=== PATIENT | female | born 1955 | race Caucasian/White ===

== ENCOUNTER 2017-12-10 19:47 | Inpatient (IN) | payer MEDICAID ==
[2017-12-10] MEDS ORDERED: Sodium Chloride 0.9% 1,000 ML IV STA (22:26)
--- NOTE | 2017-12-10 22:32 | ED PDOC ---
HPI: Female Pain Time Seen by Provider: 12/10/17 22:07 Chief Complaint (Nursing): Female Genitourinary Chief Complaint (Provider): Dysuria History Per: Patient, Family Additional Complaint(s): Pt sent by Dr. Carol Mi for UTI. Son reports dysuria, hematuria, fever and L flank pain X 3 days. Pt has h/o multiple kidney stones, s/p lithotripsy X 2. Pt had "cleaning" surgery of OS eye this morning. Past Medical History Reviewed: Nursing Documentation, Vital Signs Vital Signs: Last Vital Signs Temp 98.0 F 12/10/17 20:18 Pulse 78 12/10/17 20:18 Resp 16 12/10/17 20:18 BP 116/65 12/10/17 20:18 Pulse Ox 98 12/10/17 20:18 - Medical History PMH: Diabetes, HTN - Surgical History Other surgeries: Lithotripsy - Family History Family History: States: Unknown Family Hx - Living Arrangements Living Arrangements: With Family - Social History Current smoker - smoking cessation education provided: No Alcohol: None - Home Medications Home Medications: Ambulatory Orders Medication Instructions Recorded Acetaminophen/Codeine 1 tab PO Q6H PRN 12/11/17 [Tylenol/Codeine 300 MG/30 MG] Ammonium Lactate 12% [Lac-Hydrin 1 applic TOP BID 12/11/17 12% Cream (140 g)] Brinzolamide/Brimonidine Tart 8 ml OP BID 12/11/17 [Simbrinza 0.2%-1% 8 ml] Cranberry Fruit Extract [Cranberry] 1,000 mg PO BID 12/11/17 Gabapentin [Neurontin] 300 mg PO TID 12/11/17 Hydrocortisone 2.5% (Rectal) 30 applic DE BID 12/11/17 [Anusol-HC] Lisinopril [Zestril] 10 mg PO DAILY 12/11/17 Mag Hydrox/Aluminum Hyd/Simeth 30 ml PO DAILY PRN 12/11/17 [Mag-Al Plus Xs 30 ml] Metformin HCl [Glucophage] 1,000 mg PO DAILY 12/11/17 Pantoprazole [Protonix] 40 mg PO DAILY 12/11/17 Phenazopyridine [Pyridium] 100 mg PO TID 12/11/17 Polyethylene Glycol 3350 [Miralax] 17 g PO DAILY 12/11/17 Pravastatin Sodium [Pravachol] 40 mg PO DAILY 12/11/17 Sennosides [Senna Lax] 1 tab PO DAILY 12/11/17 Simethicone [Bicarsim] 80 mg PO TID 12/11/17 Travoprost [Travatan Z 2.5 ml] 5 ml OP HS 12/11/17 Warfarin [Coumadin] 5 mg PO HS 12/11/17 [id number] CD [Cardizem CD] 360 mg PO DAILY 12/11/17 - Allergies Allergies/Adverse Reactions: Allergies Allergy/AdvReac Type Severity Reaction Status Date / Time No Known Allergies Allergy Verified 12/10/17 20:15 Review of Systems Constitutional: Positive for: Fever. Negative for: Chills, Weakness, Malaise Cardiovascular: Negative for: Chest Pain, Palpitations Respiratory: Negative for: Cough, Shortness of Breath Gastrointestinal: Negative for: Nausea, Vomiting, Abdominal Pain Genitourinary Female: Positive for: Dysuria, Hematuria Musculoskeletal: Positive for: Back Pain Skin: Negative for: Rash, Lesions Neurological: Negative for: Headache Physical Exam - Reviewed Nursing Documentation Reviewed: Yes Vital Signs Reviewed: Yes - Physical Exam Appears: Positive for: Uncomfortable Head Exam: Positive for: ATRAUMATIC, NORMAL INSPECTION Skin: Positive for: Normal Color, Warm, Dry Eye Exam: Positive for: Conjunctival injection (OS) Cardiovascular/Chest: Positive for: Regular Rate, Rhythm Respiratory: Positive for: Normal Breath Sounds Gastrointestinal/Abdominal: Positive for: Normal Exam, Bowel Sounds, Soft. Negative for: Tenderness Back: Positive for: L CVA Tenderness, R CVA Tenderness Extremity: Positive for: Normal ROM Neurologic/Psych: Positive for: Alert, Oriented - Laboratory Results Result Diagrams: 12/14/17 05:35 12/14/17 05:35 - ECG O2 Sat by Pulse Oximetry: 98 Medical Decision Making Medical Decision Makin yo female with fever, dysuria, hematuria and flank pain. - labs - EKG - CT abd/pelvis - IVF - Morphine Time: 2326 CT ABD/PELVIS RESULTS FINDINGS: Lower thorax: Small hiatal hernia. Atelectasis or fibrosis in the bases. ABDOMEN: Liver: Normal. No mass. Gallbladder and bile ducts: Cholelithiasis. Pancreas: Normal. No ductal dilation. Spleen: Normal. No splenomegaly. Adrenals: Left adrenal thickening. Kidneys and ureters: Calyceal stones are noted on the left with stranding around the left renal pelvis. Correlate for intermittent obstruction. The collecting system proximal to the stone material superiorly appears to be somewhat dilated. Correlate for signs of infection. Small stone or renal vascular calcification on the right. No right-sided hydronephrosis Stomach and bowel: Moderate fecal retention. Diverticulosis with no diverticulitis. Appendix: No evidence of appendicitis. PELVIS: Bladder: Unremarkable as visualized. Reproductive: Unremarkable as visualized. YAKELIN JOSHI | Preliminary Radiology Report RETAIL INTERIOR DESIGNER (QA) DISCREPANCY? If there is a discrepancy between the preliminary and final interpretation, please notify Reading Room via [email or web address]. If you do not have access to our QA portal, call our QA team at [phone] CONFIDENTIALITY STATEMENT This report is intended only for the use of the referring physician, and only in accordance with law, If you received this in error, call [phone] Page 2 of 2 ABDOMEN and PELVIS: Intraperitoneal space: Normal. No free air. No significant fluid collection. Bones/joints: Degenerative changes in the spine. Soft tissues: Probable injection granulomas in the gluteal regions. Vasculature: Normal. No abdominal aortic aneurysm. Lymph nodes: Normal. No enlarged lymph nodes. IMPRESSION: 1. Calyceal stones are noted on the left with stranding around the left renal pelvis. Correlate for intermittent obstruction. The collecting system proximal to the stone material superiorly appears to be somewhat dilated. Correlate for signs of infection. 2. Cholelithiasis. Thank you for allowing us to participate in the care of your patient. Dictated and Authenticated by: Rashad Quesada MD 12/10/2017 11:27 PM Eastern Time ([place] & [place]) Time: 0000 -- Patient endorsed to Dr. Cabrera, pending urine and disposition. Scribe Attestation: Documented by Jayla Zavala acting as a scribe for Dr. Priscila Vicente MD. Provider Scribe Attestation: All medical record entries made by the Scribe were at my direction and personally dictated by me. I have reviewed the chart and agree that the record accurately reflects my personal performance of the history, physical exam, medical decision making, and the department course for this patient. I have also personally directed, reviewed, and agree with the discharge instructions and disposition. Disposition - Clinical Impression Clinical Impression: Urinary tract infection - Disposition Disposition: Transfer of Care Disposition Time: 19:00 Condition: STABLE Patient Signed Over To: Jazmin Cabrera
[2017-12-10 23:36] LABS: BASO # 0.1 K/uL (0.0-0.2); BASO % 0.9 % (0.0-2.0); EOS # 0.1 K/uL (0.0-0.7); EOS % 1.2 % (0.0-4.0); HEMOGLOBIN 13.2 g/dL (12.0-16.0); LYMPH # 2.7 K/uL (1.0-4.3); LYMPH % 41.5 % (20.0-40.0); MEAN CELL VOLUME 87.6 fl (81.0-99.0); MEAN CORPUSCULAR HEMOGLOBIN 29.3 pg (27.0-31.0); MEAN CORPUSCULAR HGB CONC 33.4 g/dL (33.0-37.0); MONO # 0.9 K/uL (0.0-0.8); MONO % 13.9 % (0.0-10.0); NEUT # 2.7 K/uL (1.8-7.0); NEUT % 42.5 % (50.0-75.0); NRBC % 0.1 % (0.0-0.0); RBC 4.49 Mil/uL (3.80-5.20); RED CELL DISTRIBUTION WIDTH 13.6 % (11.5-14.5); WHITE BLOOD COUNT 6.4 K/uL (4.8-10.8)
[2017-12-10 23:49] LABS: ALB/GLOB RATIO 1.2 (1.0-2.1); ALBUMIN 3.8 g/dL (3.5-5.0); ALT/SGPT 28 U/L (9-52); AST/SGOT 23 U/L (14-36); BLOOD UREA NITROGEN 14 mg/dl (7-17); CALCIUM 9.3 mg/dL (8.4-10.2); GFR AFRICAN-AMERICAN > 60; GFR NON-AFRICAN AMERICAN > 60
[2017-12-11 00:02] LABS: INR 3.2 (0.9-1.2); PARTIAL THROMBOPLASTIN TIME 44.6 Seconds (25.6-37.1); PROTHROMBIN TIME 35.9 Seconds (9.8-13.1)
--- NOTE | 2017-12-11 00:05 | ED PDOC ---
- Laboratory Results Result Diagrams: 12/11/17 12:51 12/11/17 12:51 - ECG O2 Sat by Pulse Oximetry: 98 (RA) Pulse Ox Interpretation: Normal Medical Decision Making Medical Decision Making: Time: 0000 -- Patient endorsed to me by Dr. Vicente, pending urine and disposition. UA consistent with UTI. Admit for pyelonephritis for IV abx. Scribe Attestation: Documented by Jayla Zavala acting as a scribe for Dr. Jazmin Cabrera MD. Provider Scribe Attestation: All medical record entries made by the Scribe were at my direction and personally dictated by me. I have reviewed the chart and agree that the record accurately reflects my personal performance of the history, physical exam, medical decision making, and the department course for this patient. I have also personally directed, reviewed, and agree with the discharge instructions and disposition. Disposition Discussed With DrAugie: Shiva Alvarez Counseled Patient/Family Regarding: Studies Performed, Diagnosis - Clinical Impression Clinical Impression: Urinary tract infection - POA Present On Arrival: None - Disposition Disposition: Admitted as In-Patient Disposition Time: 01:30 Condition: FAIR
[2017-12-11 00:52] LABS: SQUAMOUS EPITHIAL 14 /hpf (0-5); URINE BILIRUBIN NEGATIVE (NEGATIVE); URINE BLOOD LARGE (NEGATIVE); URINE CLARITY TURBID (Clear); URINE COLOR AMBER (YELLOW); URINE GLUCOSE (UA) NEG (Normal); URINE LEUKOCYTE ESTERASE LARGE Leu/uL (Negative); URINE PROTEIN >=500 mg/dL (NEGATIVE); URINE UROBILINOGEN 0.2-1.0 mg/dL (0.2-1.0)
[2017-12-11] MEDS ORDERED: cefTRIAXone (Rocephin) 1 gm Inj ONE (03:12)
--- NOTE | 2017-12-11 09:52 | CT ---
PROCEDURE: CT Abdomen and Pelvis without intravenous contrast HISTORY: L flank pain COMPARISON: None. TECHNIQUE: Contiguous images were obtained from the domes of the diaphragms to the upper thighs without the administration of intravenous contrast. Oral contrast was not administered. Radiation dose: Total exam DLP = 1164.4 mGy-cm. This CT exam was performed using one or more of the following dose reduction techniques: Automated exposure control, adjustment of the mA and/or kV according to patient size, and/or use of iterative reconstruction technique. FINDINGS: LOWER THORAX: Cardiomegaly. Coronary arterial and valvular calcifications. No focal consolidation or pleural effusion. LIVER: Unremarkable. No gross lesion or ductal dilatation. GALLBLADDER AND BILE DUCTS: Cholelithiasis without gallbladder wall thickening/ edema or pericholecystic fluid. PANCREAS: Unremarkable. No gross lesion or ductal dilatation. SPLEEN: Unremarkable. ADRENALS: Unremarkable. No mass. KIDNEYS AND URETERS: 1.6 x 0.9 cm left renal pelvis staghorn calculus extending into upper and lower pole calices causing moderate upper pole hydronephrosis. No solid mass. VASCULATURE: Calcific atherosclerosis. No aortic aneurysm. BOWEL: Colonic diverticulosis. No obstruction. No gross mural thickening. APPENDIX: Unremarkable. Normal appendix. PERITONEUM: Unremarkable. No free fluid. No free air. LYMPH NODES: Unremarkable. No enlarged lymph nodes. BLADDER: Unremarkable. REPRODUCTIVE: Unremarkable. BONES: Nonacute deformity of the symphysis pubis. Sacroiliac joint degenerative changes. OTHER FINDINGS: None. IMPRESSION: 1.6 x 0.9 cm left renal pelvis staghorn calculus extending into upper and lower pole calices causing moderate upper pole hydronephrosis. Additional findings as above.
[2017-12-11] MEDS ORDERED: SIMETH PO PRN (10:37)
[2017-12-11] MEDS ORDERED: MAG HYDROX PO PRN (10:37)
[2017-12-11] MEDS ORDERED: Acetaminophen-Codeine 300/30 mg Tab PO PRN (10:37)
[2017-12-11] MEDS ORDERED: ALUMINUM HYD PO PRN (10:37)
[2017-12-11] MEDS ORDERED: HYDROmorphone 0.5 mg/0.5 ml ISec IVP PRN (10:45)
[2017-12-11] MEDS ORDERED: Alum-Mag Hydrox-Simethicone Susp (30 mL) PO PRN (11:59)
[2017-12-11] MEDS: Simethicone 80 mg Chewtab PO SCH ×2 (12:34→18:45)
[2017-12-11 13:11] LABS: ALB/GLOB RATIO 1.1 (1.0-2.1); ALBUMIN 3.8 g/dL (3.5-5.0); ALT/SGPT 25 U/L (9-52); AST/SGOT 20 U/L (14-36); BLOOD UREA NITROGEN 13 mg/dl (7-17); CALCIUM 9.5 mg/dL (8.4-10.2); GFR AFRICAN-AMERICAN > 60; GFR NON-AFRICAN AMERICAN > 60
[2017-12-11 13:22] LABS: BASO % 0.3 % (0.0-2.0); EOS # 0.1 K/uL (0.0-0.7); EOS % 0.9 % (0.0-4.0); HEMOGLOBIN 13.5 g/dL (12.0-16.0); LYMPH # 3.6 K/uL (1.0-4.3); LYMPH % 44.5 % (20.0-40.0); MEAN CELL VOLUME 87.9 fl (81.0-99.0); MEAN CORPUSCULAR HEMOGLOBIN 29.8 pg (27.0-31.0); MEAN CORPUSCULAR HGB CONC 33.9 g/dL (33.0-37.0); MEAN PLATELET VOLUME 8.8 fl (7.2-11.7); MONO # 1.1 K/uL (0.0-0.8); MONO % 13.8 % (0.0-10.0); NEUT # 3.2 K/uL (1.8-7.0); NEUT % 40.5 % (50.0-75.0); NRBC % 0.2 % (0.0-0.0); RBC 4.53 Mil/uL (3.80-5.20); RED CELL DISTRIBUTION WIDTH 13.5 % (11.5-14.5)
[2017-12-11 13:23] LABS: B-TYPE NATRIURETIC PEPTIDE 304 pg/ml (0-900)
--- NOTE | 2017-12-11 13:41 | RAD ---
HISTORY: Chest pain COMPARISON: No prior. FINDINGS: LUNGS: No active pulmonary disease. PLEURA: No significant pleural effusion identified, no pneumothorax apparent. CARDIOVASCULAR: Atherosclerotic aortic calcifications. Cardiomediastinal silhouette enlarged. OSSEOUS STRUCTURES: Degenerative changes. VISUALIZED UPPER ABDOMEN: Normal. OTHER FINDINGS: None. IMPRESSION: No active disease.
--- NOTE | 2017-12-11 13:50 | PCM.RRT ---
<FarzanehMaria M - Last Filed: 12/11/17 14:26> EQUIPMENT MAINTENANCE TECHNICIAN Nurse Assessment - Situation Location: [address] [place] [address] Room Number: 657 2 EQUIPMENT MAINTENANCE TECHNICIAN Reason for Call: Chest Pain, Looks Sicker EQUIPMENT MAINTENANCE TECHNICIAN Called By: RN - IV IV Inserted during EQUIPMENT MAINTENANCE TECHNICIAN?: No - Respiratory Oxygen Delivery Method: Nasal Cannula Received Nebulizer Treatments: No Was the Patient Ventilated with Bag/Mask 100% O2?: No Secretions Suctioned?: No Was the Patient Intubated?: No Was the Patient Placed on a Ventilator?: No - Diagnostic Test Ordered EKG: Yes Chest X-Ray: No CT Scan: No - Stat Labs Ordered EQUIPMENT MAINTENANCE TECHNICIAN Stat Labs Ordered: BMP, TROPONIN CPR started during EQUIPMENT MAINTENANCE TECHNICIAN?: No - Vital Signs Vital Signs: Rapid Response Vital Sign Blood Pressure 158/83 Pulse Rate 85 Respiratory Rate 18 Oxygen Saturation 98 - Time EQUIPMENT MAINTENANCE TECHNICIAN Ended Time EQUIPMENT MAINTENANCE TECHNICIAN Ended: 13:10 - Vital Signs at end of EQUIPMENT MAINTENANCE TECHNICIAN Vital Signs at end of EQUIPMENT MAINTENANCE TECHNICIAN: Rapid Response End Vital Sign Blood Pressure 156/78 Pulse Rate 84 Respiratory Rate 22 O2 Sat by Pulse Oximetry 96 - Recommendations EQUIPMENT MAINTENANCE TECHNICIAN Level of Care Recommendations: Remain in current setting I.Reason for EQUIPMENT MAINTENANCE TECHNICIAN - A) Acute Change in Patient: Subjective: EQUIPMENT MAINTENANCE TECHNICIAN: Elba Wellington [id number] EQUIPMENT MAINTENANCE TECHNICIAN Time:12:46 pm EQUIPMENT MAINTENANCE TECHNICIAN Location: [address] [place] [address] Rm [id number] EQUIPMENT MAINTENANCE TECHNICIAN Arrival: 12:50pm EQUIPMENT MAINTENANCE TECHNICIAN Reason: Chest pain/pressure S: EQUIPMENT MAINTENANCE TECHNICIAN called by RN bc pt was complaining of chest pain/pressure after taking a dose of Dilaudid O: EQUIPMENT MAINTENANCE TECHNICIAN Vitals:12:50pm T: BP: 152/79 HR: 92 RR: O2 Sat:88% on NC General:Patient is Anxious and in distress, moaning, AAOx3 HEENT: NCAT, PERRLA, EOMI Cardiac: RRR, +S1S2, no murmurs rubs or gallops Resp: B/L breath sounds heard, CTA Abdo: No abdominal tenderness, + bowel sounds heard Extr: B/L LE chronic skin changes, + edema EQUIPMENT MAINTENANCE TECHNICIAN intervention: -Labs obtained- CBC, CMP, Troponins Q8h, Pro-BNP -Stat EKG completed and interpreted by Dr. Kim, patient has A fib on coumadin consistent with prior study on 12/11/17, no ischemic changes, no ST Elevations. -Portable CXR -0.25 Xanax (PT refused) -Transfer to Telemetry (PT refused) -Patient refused to sign transfer form -Dr. Leblanc Cardio consult STAT -All interventions refused A/P: 62 yo F admitted for pyleonephritis complaining of chest pain/pressure after receiving a dose of dilaudid EQUIPMENT MAINTENANCE TECHNICIAN Outcome: Follow up serial troponins, patient labs Events Patient refused all interventions and refused to sign document for transfer to telemetry EQUIPMENT MAINTENANCE TECHNICIAN vitals: BP 156/76 HR 84 O2 Sat 96 (1:05pm) EQUIPMENT MAINTENANCE TECHNICIAN end: 1:05pm EQUIPMENT MAINTENANCE TECHNICIAN Leader: Dr. Kim EQUIPMENT MAINTENANCE TECHNICIAN residents: Magdiel Altman MD PGY3 Pamela Rachel PGY2 Maria M Moy MD- PGY1 Ruth Wilson MD PGY1 <Sherri Kim - Last Filed: 12/11/17 16:40> EQUIPMENT MAINTENANCE TECHNICIAN Nurse Assessment - Vital Signs Vital Signs: Rapid Response Vital Sign Blood Pressure 158/83 Pulse Rate 85 Respiratory Rate 18 Oxygen Saturation 98 - Vital Signs at end of EQUIPMENT MAINTENANCE TECHNICIAN Vital Signs at end of EQUIPMENT MAINTENANCE TECHNICIAN: Rapid Response End Vital Sign Blood Pressure 156/78 Pulse Rate 84 Respiratory Rate 22 O2 Sat by Pulse Oximetry 96 Attending/Attestation - Attestation I have personally seen and examined this patient.: Yes I have fully participated in the care of the patient.: Yes I have reviewed all pertinent clinical information, including history, physical exam and plan: Yes Notes (Text): 12/11/17 16:37 Chest Pain prob referred pain from Pyelonephritis however need to r/o cardiac etiology - EKG : no change from previous , A Fib - refused transfer to Tele - Troponin x 3 - CXR - Pt on Coumadin for A Fib - refused to tke any med for now Dr Alvarez notified of event- rec Cardio consult with Dr Leblanc
[2017-12-11] MEDS ORDERED: BRIMONIDINE TART OP SCH (17:00)
[2017-12-11] MEDS ORDERED: BRINZOLAMIDE OP SCH (17:00)
[2017-12-11] MEDS: Hydrocortisone 2.5% (Rectal) CREAM PR SCH (18:45)
[2017-12-11] MEDS: Ammonium Lactate 12% Cream (140 g) TOP SCH (18:45)
--- NOTE | 2017-12-11 18:45 | CP.PCM.CON ---
History of Present Illness - History of Present Illness History of Present Illness: Nephrology Consultation Note: Assessment: Stable UTI with left staghorn calculi diabetes Mellitus ( years), hypertension (years) morbid obesity hyperlipidemia, a fib, left kidney stone s/p ESWL and stent placements Plan renal function normal. repeat urine studies for protein once UTI better Hypertension control with meds as ordered. Patient on lisinopril, continue with same. BP controlled continue with IVF and antibiotics need urology consult as well. d/w Dr Issa Dose meds/antibiotics for normal GFR. Glycemic control Further work up/management as per primary team Thanks for allowing me to participate in care of your patient. Please call if any Qs Dr Juan Yap Office: [phone] Chief Complaint; left flank pain HPI: Pt is a with hx of diabetes Mellitus ( years), hypertension (years) morbid obesity hyperlipidemia, a fib, left kidney stone s/p ESWL and stent placements presented with complaints of left flank pain and UTI. found to have left staghorn calculi and renal consult for further management Denies OTC/herbal meds or NSAIDs No recent iodinated contrast exposure. No obvious episodes of low BP. left flank pain better pt says she has been going through these for many years and this is not new for her and had happened many times ROS: use language line for sami interpretation Cardiovascular: No chest pain. Pulmonary: No shortness of breath Gastrointestinal: denies abdominal pain now and better No nausea. No vomiting. Genitourinary: c/o blood in urine. All other negative except as mentioned in HPI Physical Examination: General Appearance: Comfortable, in no acute respiratory distress, co-operative . obese Vitals reviewed and noted as below Head; Atraumatic, normocephalic ENT: no ulcers no thrush. Tongue is midline. Oropharynx: no rash or ulcers. EYES: Pupils are equal, round and reactive to light accommodation. Eye muscles and extraocular movement intact. Sclera is anicteric. Neck; supple no lymphadenopathy, no thyromegaly or bruit Lungs: Normal respiratory rate/effort. Breath sounds bilateral equal and clear Heart: Normal rate. s1s2 normal. No rub or gallop. Extremities: no edema. No varicose veins Neurological: Patient is alert, awake and oriented to person, place and time. No focal deficit. Strength bilateral appropriate and equal Skin: Warm and dry. Normal turgor. No rash. Palpitation: Normal elasticity for age Abdomen: Abdomen is soft. Bowel sounds +. There is no abdominal tenderness, no guarding/rigidity no organomegaly Psych: normal insight and normal affect/mood MSK: no joint tenderness or swelling. Digits and nails normal, no deformity : kidney or bladder not palpable Labs/imaging reviewed. Past medical history, past surgical history, family history, social history, allergy reviewed and noted as below Family hx: no hx of CKD. Rest non-contributory Past Patient History - Past Social History Smoking Status: Never Smoked - CARDIAC Hx Cardiac Disorders: Yes (CARD ARRHTHMIA, HTN) - HEENT Hx HEENT Problems: Yes (GLAUCOMA) - RENAL Other/Comment: kidney stone - ENDOCRINE/METABOLIC Hx Diabetes Mellitus Type 2: Yes - MUSCULOSKELETAL/RHEUMATOLOGICAL Hx Falls: No - GASTROINTESTINAL Other/Comment: gall stone - GENITOURINARY/GYNECOLOGICAL Hx Genitourinary Disorders: Yes (KIDNEY STONES, LITHOTRIPSY) - PSYCHIATRIC Hx Substance Use: No - SURGICAL HISTORY Other/Comment: kidney stone lithotripsy - ANESTHESIA Hx Anesthesia: Yes Hx Anesthesia Reactions: No Meds Allergies/Adverse Reactions: Allergies Allergy/AdvReac Type Severity Reaction Status Date / Time No Known Allergies Allergy Verified 12/10/17 20:15 - Medications Medications: Current Medications Acetaminophen/Codeine Phosphate (Tylenol/Codeine 300 Mg/30 Mg) 1 tab PO Q6 PRN PRN Reason: Pain, moderate (4-7) Al Hydrox/Mg Hydrox/Simethicone (Maalox Plus 30 Ml) 30 ml PO DAILY PRN PRN Reason: Heartburn Last Admin: 12/11/17 12:34 Dose: 30 ml Diltiazem HCl (Cardizem Cd) 360 mg PO DAILY LISANDRA Gabapentin (Neurontin) 300 mg PO TID LISANDRA Last Admin: 12/11/17 13:26 Dose: Not Given Home Med (Brinzolamide/Brimonidine Tart [Simbrinza 1%-0.2% Eye Drops]) 8 ml OP BID LISANDRA Hydrocortisone (Anusol-Hc) 30 applic [place] BID LISANDRA Hydromorphone HCl (Dilaudid) 1 mg IVP Q4H PRN PRN Reason: Pain, severe (8-10) Last Admin: 12/11/17 11:34 Dose: 1 mg Ceftriaxone Sodium 1 gm/ (Sodium Chloride) 100 mls @ 100 mls/hr IVPB DAILY [facility] PRN Reason: Protocol Lactic Acid (Lac-Hydrin 12% Cream (140 G)) 1 ea TOP BID LISANDRA Latanoprost (Xalatan Opht) 1 drop OS HS LISANDRA Lisinopril (Zestril) 10 mg PO DAILY [facility] Metformin HCl (Glucophage) 1,000 mg PO DAILY LISANDRA Pantoprazole Sodium (Protonix Ec Tab) 40 mg PO DAILY LISANDRA Phenazopyridine HCl (Pyridium) 100 mg PO TID [facility] Last Admin: 12/11/17 13:26 Dose: Not Given Polyethylene Glycol (Miralax) 17 gm PO DAILY LISANDRA Pravastatin Sodium (Pravachol) 40 mg PO DAILY LISANDRA Sennosides (Senokot Tab) 8.6 mg PO DAILY [facility] Simethicone (Mylicon Chew Tab) 80 mg PO TID [facility] Last Admin: 12/11/17 12:34 Dose: 80 mg Warfarin Sodium (Coumadin) 4 mg PO ONCE ONE PRN Reason: Protocol Stop: 12/12/17 17:01 Results - Vital Signs Recent Vital Signs: Last Vital Signs Temp 97.3 F L 12/11/17 17:00 Pulse 87 12/11/17 17:00 Resp 20 12/11/17 17:00 BP 132/70 12/11/17 17:00 Pulse Ox 100 12/11/17 17:00 - Labs Result Diagrams: 12/11/17 12:51 12/11/17 12:51 Labs: Laboratory Results - last 24 hr 12/10/17 12/10/17 12/10/17 23:20 23:31 23:31 WBC 6.4 RBC 4.49 Hgb 13.2 Hct 39.4 MCV 87.6 MCH 29.3 MCHC 33.4 RDW 13.6 Plt Count 241 MPV 9.0 Neut % (Auto) 42.5 L Lymph % (Auto) 41.5 H Vance % (Auto) 13.9 H Eos % (Auto) 1.2 Baso % (Auto) 0.9 Neut # (Auto) 2.7 Lymph # (Auto) 2.7 Vance # (Auto) 0.9 H Eos # (Auto) 0.1 Baso # (Auto) 0.1 PT INR APTT Sodium 140 Potassium 4.2 Chloride 106 Carbon Dioxide 22 Anion Gap 16 BUN 14 Creatinine 0.7 Est GFR ( Amer) > 60 Est GFR (Non-Af Amer) > 60 POC Glucose (mg/dL) 149 H Random Glucose 148 H Calcium 9.3 Total Bilirubin 0.6 AST 23 ALT 28 Alkaline Phosphatase 71 Troponin I NT-Pro-B Natriuret Pep Total Protein 6.9 Albumin 3.8 Globulin 3.1 Albumin/Globulin Ratio 1.2 Urine Color Urine Clarity Urine pH Ur Specific [place] Urine Protein Urine Glucose (UA) Urine Ketones Urine Blood Urine Nitrate Urine Bilirubin Urine Urobilinogen Ur Leukocyte Esterase Urine RBC (Auto) Urine Microscopic WBC Ur Squamous Epith Cells 12/10/17 12/11/17 12/11/17 23:31 00:29 11:13 WBC RBC Hgb Hct MCV MCH MCHC RDW Plt Count MPV Neut % (Auto) Lymph % (Auto) Vance % (Auto) Eos % (Auto) Baso % (Auto) Neut # (Auto) Lymph # (Auto) Vance # (Auto) Eos # (Auto) Baso # (Auto) PT 35.9 H INR 3.2 H APTT 44.6 H Sodium Potassium Chloride Carbon Dioxide Anion Gap BUN Creatinine Est GFR ( Amer) Est GFR (Non-Af Amer) POC Glucose (mg/dL) 124 H Random Glucose Calcium Total Bilirubin AST ALT Alkaline Phosphatase Troponin I NT-Pro-B Natriuret Pep Total Protein Albumin Globulin Albumin/Globulin Ratio Urine Color Hyacinth Urine Clarity Turbid Urine pH 6.0 Ur Specific [place] 1.022 Urine Protein >=500 Urine Glucose (UA) Neg Urine Ketones Negative Urine Blood Large Urine Nitrate Negative Urine Bilirubin Negative Urine Urobilinogen 0.2-1.0 Ur Leukocyte Esterase Large Urine RBC (Auto) 2265 H Urine Microscopic WBC 2218 H Ur Squamous Epith Cells 14 H 12/11/17 12/11/17 12/11/17 12:48 12:51 12:51 WBC 8.0 RBC 4.53 Hgb 13.5 Hct 39.9 MCV 87.9 MCH 29.8 MCHC 33.9 RDW 13.5 Plt Count 240 MPV 8.8 Neut % (Auto) 40.5 L Lymph % (Auto) 44.5 H Vance % (Auto) 13.8 H Eos % (Auto) 0.9 Baso % (Auto) 0.3 Neut # (Auto) 3.2 Lymph # (Auto) 3.6 Vance # (Auto) 1.1 H Eos # (Auto) 0.1 Baso # (Auto) 0.0 PT INR APTT Sodium 141 Potassium 4.2 Chloride 106 Carbon Dioxide 24 Anion Gap 15 BUN 13 Creatinine 0.6 L Est GFR ( Amer) > 60 Est GFR (Non-Af Amer) > 60 POC Glucose (mg/dL) 140 H Random Glucose 158 H Calcium 9.5 Total Bilirubin 0.7 AST 20 ALT 25 Alkaline Phosphatase 81 Troponin I < 0.0120 NT-Pro-B Natriuret Pep 304 Total Protein 7.2 Albumin 3.8 Globulin 3.4 Albumin/Globulin Ratio 1.1 Urine Color Urine Clarity Urine pH Ur Specific [place] Urine Protein Urine Glucose (UA) Urine Ketones Urine Blood Urine Nitrate Urine Bilirubin Urine Urobilinogen Ur Leukocyte Esterase Urine RBC (Auto) Urine Microscopic WBC Ur Squamous Epith Cells 12/11/17 16:09 WBC RBC Hgb Hct MCV MCH MCHC RDW Plt Count MPV Neut % (Auto) Lymph % (Auto) Vance % (Auto) Eos % (Auto) Baso % (Auto) Neut # (Auto) Lymph # (Auto) Vance # (Auto) Eos # (Auto) Baso # (Auto) PT INR APTT Sodium Potassium Chloride Carbon Dioxide Anion Gap BUN Creatinine Est GFR ( Amer) Est GFR (Non-Af Amer) POC Glucose (mg/dL) 149 H Random Glucose Calcium Total Bilirubin AST ALT Alkaline Phosphatase Troponin I NT-Pro-B Natriuret Pep Total Protein Albumin Globulin Albumin/Globulin Ratio Urine Color Urine Clarity Urine pH Ur Specific [place] Urine Protein Urine Glucose (UA) Urine Ketones Urine Blood Urine Nitrate Urine Bilirubin Urine Urobilinogen Ur Leukocyte Esterase Urine RBC (Auto) Urine Microscopic WBC Ur Squamous Epith Cells
[2017-12-11] MEDS: Latanoprost 0.005% Opht SOUTION OS SCH (21:54)
--- NOTE | 2017-12-12 03:02 | CON ---
DATE: 12/11/2017 COMPREHENSIVE UROLOGY CONSULTATION TIME OF CONSULTATION: Roughly 4:50 p.m. BRIEF HISTORY: The patient is a 62-year-old obese female from [place] with a prior history of kidney stones in the left kidney, status post shockwave lithotripsy at [facility] [place] at least two times for this left kidney stone with passing of stone fragments and gradual increase in size of the stone post procedures. The patient now referred by Dr. Mi to the ER for treatment of UTI and probable left pyelonephritis and a followup pelvic CT stone survey done at [facility] on 12/10/2017 showed a staghorn calculus in the left kidney measuring 1.6 cm x 0.9 cm extending from the upper pole to the lower pole with moderate left upper pole hydronephrosis. The patient was started on IV antibiotics, and today the patient's pain is markedly improved. PAST MEDICAL HISTORY: She does have a past medical history of hypertension, and she also has a history of some fever over the last three days during this episode. She is currently voiding mine urine well. Most of this history was obtained from the patient's brother over the telephone and a review of the medical chart and Nursing staff. The patient is also on Coumadin 4 mg once daily. She is also on metformin for treatment of diabetes. She is also on morphine for pain and gabapentin and she was started on Rocephin in the ER and is currently on Rocephin 1 gm daily IV. She is also on Xanax and lisinopril for blood pressure. Urine and blood cultures are pending. SOCIAL HISTORY: She has no history of any alcohol or tobacco use. ALLERGIES: NO KNOWN ALLERGIES TO ANY MEDICATIONS. PHYSICAL EXAMINATION: GENERAL: She is obese female. She is alert. ABDOMEN: Soft. Nondistended or tender. Minimal left CVA tenderness. No suprapubic tenderness. EXTREMITIES: She has full range of motion of both upper and lower extremities. LABORATORY DATA: Laboratory evaluation today 12/11/2017, CBC shows a WBC count of 8, hemoglobin of 13.5 and hematocrit of 39.9, with a platelet count of 240,000. However, coag profile shows a PT of 35.9, INR of 3.2, which is elevated, and a PTT of 44.6. Her chem profile shows a sodium of 141, potassium 4.2, chloride 106, CO2 24. BUN and creatinine are 13 and 0.6 respectively, with a GFR of greater than 60. Random glucose was 140 and 158. Calcium 9.5, AST 20, ALT 25, alkaline phosphatase 81. Urinalysis on 12/11/2017 shows the color was mine, clarity was turbid, pH 6, specific gravity 1.022. Protein greater than 500. Glucose negative. Ketones negative. Large blood. Nitrites negative. Bilirubin negative. Urobilinogen 0.2 to 1. Leukocyte esterase large. There were 2265 rbc's and 2218 wbc's per high-powered field. PLAN: Plan for this patient is to continue her on IV antibiotics, which is Rocephin at this time, and we will also get a KUB to be able to follow up this stone. The patient may be a candidate for followup repeat shockwave lithotripsies at the [facility] in [place] versus a percutaneous nephrolithotomy. Coumadin would have to be stopped for any of these procedures. Rony Issa MD [facility]
[2017-12-12 07:53] LABS: HEMOGLOBIN 12.7 g/dL (12.0-16.0); MEAN CELL VOLUME 87.8 fl (81.0-99.0); MEAN CORPUSCULAR HEMOGLOBIN 29.6 pg (27.0-31.0); MEAN CORPUSCULAR HGB CONC 33.7 g/dL (33.0-37.0); RBC 4.28 Mil/uL (3.80-5.20); RED CELL DISTRIBUTION WIDTH 13.5 % (11.5-14.5); WHITE BLOOD COUNT 5.1 K/uL (4.8-10.8)
[2017-12-12 08:12] LABS: BLOOD UREA NITROGEN 11 mg/dl (7-17); GFR AFRICAN-AMERICAN > 60; GFR NON-AFRICAN AMERICAN > 60
[2017-12-12 08:13] LABS: ALBUMIN 3.3 g/dL (3.5-5.0); ALT/SGPT 19 U/L (9-52); AST/SGOT 18 U/L (14-36); CALCIUM 9.2 mg/dL (8.4-10.2)
[2017-12-12 08:20] LABS: INR 2.6 (0.9-1.2); PROTHROMBIN TIME 29.1 Seconds (9.8-13.1)
[2017-12-12] MEDS: Pantoprazole 40 mg EC Tab PO SCH (08:22)
[2017-12-12] MEDS: Simethicone 80 mg Chewtab PO SCH ×3 (08:22→16:45)
[2017-12-12] MEDS: Hydrocortisone 2.5% (Rectal) CREAM PR SCH ×2 (08:22→16:43)
[2017-12-12] MEDS: Pravastatin Sodium 40 MG TAB PO SCH (08:22)
[2017-12-12] MEDS: diltiaZEM 180 mg/24 Hours CD Cap PO SCH (08:23)
[2017-12-12] MEDS: Ammonium Lactate 12% Cream (140 g) TOP SCH ×2 (08:23→16:44)
[2017-12-12] MEDS ORDERED: POLYETHYLENE GLYCOL 3350 17 GM/Dose PACKET PO SCH (09:00)
--- NOTE | 2017-12-12 09:38 | RAD ---
HISTORY: LEFT KIDNEY STONE ON CT COMPARISON: CT scan of the abdomen pelvis dated 12/10/2017. FINDINGS: BOWEL: Normal. No obstruction. No free air. BONES: Normal. OTHER FINDINGS: Faint 2.0 cm calculus again seen overlying the left renal pelvis. IMPRESSION: Faint 2.0 calculus again seen overlying the left renal pelvis.
--- NOTE | 2017-12-12 12:24 | CP.PCM.CON ---
History of Present Illness - History of Present Illness History of Present Illness: I was asked to see patient by Dr Alvarez. patient is a 62 year old female with PMH HTN, atrial fibrillation who presents with UTI. The patient is being treated for pyelonephritis. She complained of chest pain at rest, nonradiating. Troponin has been drawn. Review of Systems - Constitutional Constitutional: absent: As Per HPI, Anorexia, Chills, Daytime Sleepiness, Excessive Sweating, Fatigue, Fever, Frequent Falls, Headache, Increased Appetite , Lethargy, Malaise, Night Sweats, Snoring, Sleep Apnea, Weight Gain, Weight Loss, Weakness, Other - EENT Eyes: absent: As Per HPI, Blind Spots, Blurred Vision, Change in Vision, Decreased Night Vision, Diplopia, Discharge, Dry Eye, Exophthalmos, Floaters, Irritation, Itchy Eyes, Loss of Peripheral Vision, Pain, Photophobia, Requires Corrective Lenses, Sees Flashes, Spots in Vision, Tunnel Vision, Other Visual Disturbances, Loss of Vision, Other Ears: absent: As Per HPI, Decreased Hearing, Ear Discharge, Ear Pain, Tinnitus, Abnormal Hearing, Disequilibrium, Dizziness, Other Nose/Mouth/Throat: absent: As Per HPI, Epistaxis, Nasal Congestion, Nasal Discharge, Nasal Obstruction, Nasal Trauma, Nose Pain, Post Nasal Drip, Sinus Pain, Sinus Pressure, Bleeding Gums, Change in Voice, Dental Pain, Dry Mouth, Dysphagia, Halitosis, Hoarsness, Lip Swelling, Mouth Lesions, Mouth Pain, Odynophagia, Sore Throat, Throat Swelling, Tongue Swelling, Facial Pain, Neck Pain, Neck Mass, Other - Breasts Breasts: absent: As Per HPI, Change in Shape, Mass, Pain, Nipple Discharge, Nipple Inversion, Skin Changes, Swelling, Other - Cardiovascular Cardiovascular: Chest Pain - Respiratory Respiratory: absent: As Per HPI, Cough, Dyspnea, Hemoptysis, Dyspnea on Exertion , Wheezing, Snoring, Stridor, Pain on Inspiration, Chest Congestion, Excessive Mucous Production, Change in Mucous Color, Pain with Coughing, Other - Gastrointestinal Gastrointestinal: absent: As Per HPI, Abdominal Pain, Belching, Bloating, Change in Bowel Habits, Change in Stool Character, Coffee Ground Emesis, Constipation, Cramping, Diarrhea, Dyspepsia, Dysphagia, Early Satiety, Excessive Flatus, Fecal Incontinence, Heartburn, Hematemesis, Hematochezia, Loose Stools, Melena, Nausea, Odynophagia, Temesmus, Vomiting, Other - Genitourinary Genitourinary: Freq UTI - Musculoskeletal Musculoskeletal: absent: As Per HPI, Abnormal Gait, Arthralgias, Atrophy, Back Pain, Deformity, Joint Swelling, Limited Range of Motion, Loss of Height, Muscle Cramps, Muscle Weakness, Myalgias, Neck Pain, Numbness, Radiating Pain into Limb, Stiffness, Tingling, Other - Integumentary Integumentary: absent: As Per HPI, Acne, Alopecia, Bleeding Lesions, Change in Hair, Change in Nails, Change in Pigmentation, Changing Lesions, Dry Skin, Erythema, Furuncle, Hirsutism, Lesions, New Lesions, Non-Healing Lesions, Photosensitivity, Pruritus, Rash, Skin Pain, Skin Ulcer, Sores, Striae, Swelling , Unusual Bruising, Wounds, Jaundice, Other - Neurological Neurological: absent: As Per HPI, Abnormal Gait, Abnormal Hearing, Abnormal Movements, Abnormal Speech, Behavioral Changes, Burning Sensations, Confusion, Convulsions, Disequilibrium, Dizziness, Numbness, Focal Weakness, Frequent Falls , Headaches, Lack of Coordination, Loss of Vision, Memory Loss, Paresthesias, Radicular Pain, Restless Legs, Sensory Deficit, Syncope, Tingling, Tremor, Vertigo, Weakness, Other Visual Disturbances, Other - Psychiatric Psychiatric: absent: As Per HPI, Abnormal Sleep Pattern, Anhedonia, Anxiety, Auditory Hallucinations, Behavioral Changes, Change in Appetite, Change in Libido, Confusion, Depression, Difficulty Concentrating, Hallucinations, Homicidal Ideation, Hopelessness, Irritability, Memory Loss, Mood Swings, Panic Attacks, Paranoia, Suicidal Ideation, Visual Hallucinations, Tactile Hallucinations, Other - Endocrine Endocrine: absent: As Per HPI, Change in Body Appearance, Change in Libido, Cold Intolorance, Deepening of Voice, Excessive Sweating, Fatigue, Flushing, Heat Intolorance, Increase in Ring/Shoe/Hat Size, Palpitations, Polydipsia, Polyphagia, Polyuria, Other - Hematologic/Lymphatic Hematologic: absent: As Per HPI, Easy Bleeding, Easy Bruising, Lymphadenopathy, Other Past Patient History - Past Social History Smoking Status: Never Smoked - CARDIAC Hx Cardiac Disorders: Yes (CARD ARRHTHMIA, HTN) - HEENT Hx HEENT Problems: Yes (GLAUCOMA) - RENAL Other/Comment: kidney stone - ENDOCRINE/METABOLIC Hx Diabetes Mellitus Type 2: Yes - MUSCULOSKELETAL/RHEUMATOLOGICAL Hx Falls: No - GASTROINTESTINAL Other/Comment: gall stone - GENITOURINARY/GYNECOLOGICAL Hx Genitourinary Disorders: Yes (KIDNEY STONES, LITHOTRIPSY) - PSYCHIATRIC Hx Substance Use: No - SURGICAL HISTORY Other/Comment: kidney stone lithotripsy - ANESTHESIA Hx Anesthesia: Yes Hx Anesthesia Reactions: No Meds Allergies/Adverse Reactions: Allergies Allergy/AdvReac Type Severity Reaction Status Date / Time No Known Allergies Allergy Verified 12/10/17 20:15 - Medications Medications: Current Medications Acetaminophen/Codeine Phosphate (Tylenol/Codeine 300 Mg/30 Mg) 1 tab PO Q6 PRN PRN Reason: Pain, moderate (4-7) Al Hydrox/Mg Hydrox/Simethicone (Maalox Plus 30 Ml) 30 ml PO DAILY PRN PRN Reason: Heartburn Last Admin: 12/11/17 12:34 Dose: 30 ml Brimonidine Tartrate (Alphagan 0.2% Opht) 1 drop OU BID LISANDRA Diltiazem HCl (Cardizem Cd) 360 mg PO DAILY [facility] Last Admin: 12/12/17 08:23 Dose: 360 mg Dorzolamide HCl (Trusopt) 1 drop OU BID LISANDRA Gabapentin (Neurontin) 300 mg PO TID [facility] Last Admin: 12/12/17 08:22 Dose: 300 mg Hydrocortisone (Anusol-Hc) 30 applic CA BID [facility] Last Admin: 12/12/17 08:22 Dose: 30 applic Hydromorphone HCl (Dilaudid) 1 mg IVP Q4H PRN PRN Reason: Pain, severe (8-10) Last Admin: 12/11/17 11:34 Dose: 1 mg Ceftriaxone Sodium 1 gm/ (Sodium Chloride) 100 mls @ 100 mls/hr IVPB DAILY [facility] PRN Reason: Protocol Last Admin: 12/12/17 08:25 Dose: 100 mls/hr Lactic Acid (Lac-Hydrin 12% Cream (140 G)) 1 ea TOP BID [facility] Last Admin: 12/12/17 08:23 Dose: 1 applic Latanoprost (Xalatan Opht) 1 drop OS HS [facility] Last Admin: 12/11/17 21:54 Dose: 1 drop Lisinopril (Zestril) 10 mg PO DAILY [facility] Last Admin: 12/12/17 08:27 Dose: 10 mg Metformin HCl (Glucophage) 1,000 mg PO DAILY [facility] Last Admin: 12/12/17 08:23 Dose: 1,000 mg Pantoprazole Sodium (Protonix Ec Tab) 40 mg PO DAILY [facility] Last Admin: 12/12/17 08:22 Dose: 40 mg Phenazopyridine HCl (Pyridium) 100 mg PO TID [facility] Last Admin: 12/12/17 08:22 Dose: 100 mg Polyethylene Glycol (Miralax) 17 gm PO DAILY [facility] Last Admin: 12/12/17 08:23 Dose: 17 gm Pravastatin Sodium (Pravachol) 40 mg PO DAILY [facility] Last Admin: 12/12/17 08:22 Dose: 40 mg Sennosides (Senokot Tab) 8.6 mg PO DAILY [facility] Last Admin: 12/12/17 08:24 Dose: 8.6 mg Simethicone (Mylicon Chew Tab) 80 mg PO TID [facility] Last Admin: 12/12/17 08:22 Dose: 80 mg Physical Exam - Constitutional Appears: Non-toxic - Head Exam Head Exam: NORMAL INSPECTION - Eye Exam Eye Exam: Normal appearance - ENT Exam ENT Exam: Mucous Membranes Moist - Neck Exam Neck exam: Positive for: Full Rom - Respiratory Exam Respiratory Exam: Decreased Breath Sounds - Cardiovascular Exam Cardiovascular Exam: Irregular Rhythm - GI/Abdominal Exam GI & Abdominal Exam: Normal Bowel Sounds - Rectal Exam Rectal Exam: Deferred - Extremities Exam Extremities exam: Negative for: pedal edema - Back Exam Back exam: NORMAL INSPECTION - Neurological Exam Neurological exam: Alert, Oriented x3 - Psychiatric Exam Psychiatric exam: Normal Affect - Skin Skin Exam: Normal Color Results - Vital Signs Recent Vital Signs: Last Vital Signs Temp 97.4 F L 12/12/17 08:16 Pulse 91 H 12/12/17 08:27 Resp 20 12/12/17 08:16 BP 126/84 12/12/17 08:27 Pulse Ox 99 12/12/17 08:16 - Labs Result Diagrams: 12/12/17 05:30 12/12/17 05:30 Labs: Laboratory Results - last 24 hr 12/11/17 12/11/17 12/11/17 11:13 12:48 12:51 WBC 8.0 RBC 4.53 Hgb 13.5 Hct 39.9 MCV 87.9 MCH 29.8 MCHC 33.9 RDW 13.5 Plt Count 240 MPV 8.8 Neut % (Auto) 40.5 L Lymph % (Auto) 44.5 H [place] % (Auto) 13.8 H Eos % (Auto) 0.9 Baso % (Auto) 0.3 Neut # (Auto) 3.2 Lymph # (Auto) 3.6 [place] # (Auto) 1.1 H Eos # (Auto) 0.1 Baso # (Auto) 0.0 PT INR Sodium Potassium Chloride Carbon Dioxide Anion Gap BUN Creatinine Est GFR ( Amer) Est GFR (Non-Af Amer) POC Glucose (mg/dL) 124 H 140 H Random Glucose Calcium Total Bilirubin AST ALT Alkaline Phosphatase Troponin I NT-Pro-B Natriuret Pep Total Protein Albumin Globulin Albumin/Globulin Ratio 12/11/17 12/11/17 12/11/17 12:51 16:09 18:45 WBC RBC Hgb Hct MCV MCH MCHC RDW Plt Count MPV Neut % (Auto) Lymph % (Auto) [place] % (Auto) Eos % (Auto) Baso % (Auto) Neut # (Auto) Lymph # (Auto) [place] # (Auto) Eos # (Auto) Baso # (Auto) PT INR Sodium 141 Potassium 4.2 Chloride 106 Carbon Dioxide 24 Anion Gap 15 BUN 13 Creatinine 0.6 L Est GFR ( Amer) > 60 Est GFR (Non-Af Amer) > 60 POC Glucose (mg/dL) 149 H Random Glucose 158 H Calcium 9.5 Total Bilirubin 0.7 AST 20 ALT 25 Alkaline Phosphatase 81 Troponin I < 0.0120 < 0.0120 NT-Pro-B Natriuret Pep 304 Total Protein 7.2 Albumin 3.8 Globulin 3.4 Albumin/Globulin Ratio 1.1 12/11/17 12/11/17 12/12/17 21:21 21:32 00:24 WBC RBC Hgb Hct MCV MCH MCHC RDW Plt Count MPV Neut % (Auto) Lymph % (Auto) [place] % (Auto) Eos % (Auto) Baso % (Auto) Neut # (Auto) Lymph # (Auto) [place] # (Auto) Eos # (Auto) Baso # (Auto) PT 34.0 H INR 3.0 H Sodium Potassium Chloride Carbon Dioxide Anion Gap BUN Creatinine Est GFR ( Amer) Est GFR (Non-Af Amer) POC Glucose (mg/dL) 137 H Random Glucose Calcium Total Bilirubin AST ALT Alkaline Phosphatase Troponin I < 0.0120 NT-Pro-B Natriuret Pep Total Protein Albumin Globulin Albumin/Globulin Ratio 12/12/17 12/12/17 12/12/17 05:30 05:30 05:30 WBC 5.1 RBC 4.28 Hgb 12.7 Hct 37.6 MCV 87.8 MCH 29.6 MCHC 33.7 RDW 13.5 Plt Count 221 MPV Neut % (Auto) Lymph % (Auto) [place] % (Auto) Eos % (Auto) Baso % (Auto) Neut # (Auto) Lymph # (Auto) [place] # (Auto) Eos # (Auto) Baso # (Auto) PT 29.1 H INR 2.6 H Sodium 139 Potassium 4.1 Chloride 104 Carbon Dioxide 25 Anion Gap 14 BUN 11 Creatinine 0.5 L Est GFR ( Amer) > 60 Est GFR (Non-Af Amer) > 60 POC Glucose (mg/dL) Random Glucose 143 H Calcium 9.2 Total Bilirubin 0.5 AST 18 ALT 19 Alkaline Phosphatase 71 Troponin I NT-Pro-B Natriuret Pep Total Protein 6.5 Albumin 3.3 L Globulin 3.2 Albumin/Globulin Ratio 1.0 - EKG Data EKG Interpreted by: Myself Assessment & Plan (1) Chest pain Assessment and Plan: ruled out for myocardial infarction. recommend echocardiogram to assess for regional wall motion abnormalities. Status: Acute (2) Atrial fibrillation Assessment and Plan: goal INR 2 to 3. Status: Acute
[2017-12-12] MEDS: Brimonidine 0.2% 50 DROP/5 ML BOTTLE OU SCH (17:59)
[2017-12-12] MEDS: Dorzolamide 2% Ophth Soln OU SCH (18:00)
--- NOTE | 2017-12-12 20:12 | CP.PCM.HP ---
History of Present Illness - History of Present Illness History of Present Illness: This is a 62 y/o female admitted for fever, hematuria , chills and flank pains x 2 days. She was on Pyridium but to no avail. Has a hx of recurrent kidney stones and hx of lithotripsy x 2 Initial labs showed hematuria and hyperglycemia. She has DM 2 and hyperlipidemia and atrial fib and on Metformin and statin. Currently also on zestril [address] abdomen showed staghorn calculus 1.6 x 0.9 cm at the left renal pelvis and associated hydronephropsis upper pole. Present on Admission - Present on Admission Any Indicators Present on Admission: No History of DVT/PE: No History of Uncontrolled Diabetes: Yes Urinary Catheter: No Decubitus Ulcer Present: No Review of Systems - Genitourinary Genitourinary: Dysuria, Hematuria, Freq UTI, Hx Renal/Bladder Calculi - Musculoskeletal Musculoskeletal: Back Pain Past Patient History - Past Social History Smoking Status: Never Smoked - CARDIAC Hx Cardiac Disorders: Yes (CARD ARRHTHMIA, HTN) - HEENT Hx HEENT Problems: Yes (GLAUCOMA) - RENAL Other/Comment: kidney stone - ENDOCRINE/METABOLIC Hx Diabetes Mellitus Type 2: Yes - MUSCULOSKELETAL/RHEUMATOLOGICAL Hx Falls: No - GASTROINTESTINAL Other/Comment: gall stone - GENITOURINARY/GYNECOLOGICAL Hx Genitourinary Disorders: Yes (KIDNEY STONES, LITHOTRIPSY) - PSYCHIATRIC Hx Substance Use: No - SURGICAL HISTORY Other/Comment: kidney stone lithotripsy - ANESTHESIA Hx Anesthesia: Yes Hx Anesthesia Reactions: No Meds Allergies/Adverse Reactions: Allergies Allergy/AdvReac Type Severity Reaction Status Date / Time No Known Allergies Allergy Verified 12/10/17 20:15 Physical Exam - Head Exam Head Exam: NORMAL INSPECTION - Eye Exam Eye Exam: Normal appearance - ENT Exam ENT Exam: Mucous Membranes Moist - Respiratory Exam Respiratory Exam: Clear to Auscultation Bilateral - Cardiovascular Exam Cardiovascular Exam: REGULAR RHYTHM - GI/Abdominal Exam GI & Abdominal Exam: Normal Bowel Sounds - Neurological Exam Neurological exam: CN II-XII Intact, Oriented x3 - Psychiatric Exam Psychiatric exam: Anxious Results - Vital Signs Recent Vital Signs: Last Vital Signs Temp 97.9 F 12/12/17 17:00 Pulse 76 12/12/17 17:00 Resp 20 12/12/17 17:00 BP 121/67 12/12/17 17:00 Pulse Ox 99 12/12/17 17:00 - Labs Result Diagrams: 12/12/17 05:30 12/12/17 05:30 Labs: Laboratory Results - last 24 hr 12/11/17 12/11/17 12/12/17 21:21 21:32 00:24 WBC RBC Hgb Hct MCV MCH MCHC RDW Plt Count PT 34.0 H INR 3.0 H Sodium Potassium Chloride Carbon Dioxide Anion Gap BUN Creatinine Est GFR ( Amer) Est GFR (Non-Af Amer) POC Glucose (mg/dL) 137 H Random Glucose Calcium Total Bilirubin AST ALT Alkaline Phosphatase Troponin I < 0.0120 Total Protein Albumin Globulin Albumin/Globulin Ratio 12/12/17 12/12/17 12/12/17 05:30 05:30 05:30 WBC 5.1 RBC 4.28 Hgb 12.7 Hct 37.6 MCV 87.8 MCH 29.6 MCHC 33.7 RDW 13.5 Plt Count 221 PT 29.1 H INR 2.6 H Sodium 139 Potassium 4.1 Chloride 104 Carbon Dioxide 25 Anion Gap 14 BUN 11 Creatinine 0.5 L Est GFR ( Amer) > 60 Est GFR (Non-Af Amer) > 60 POC Glucose (mg/dL) Random Glucose 143 H Calcium 9.2 Total Bilirubin 0.5 AST 18 ALT 19 Alkaline Phosphatase 71 Troponin I Total Protein 6.5 Albumin 3.3 L Globulin 3.2 Albumin/Globulin Ratio 1.0 Assessment & Plan (1) Urinary tract infection Status: Acute (2) Hematuria Status: Acute (3) Diabetes mellitus type 2 in obese Status: Acute (4) Atrial fibrillation Status: Acute (5) Chest pain Status: Acute (6) Nephrolithiasis Status: Acute (7) Staghorn calculus Status: Acute - Assessment and Plan (Free Text) Plan: Iv antibiotics renal eval eval cardiology hydrate pain meds. check a1c add nakia
--- NOTE | 2017-12-12 20:28 | CP.PCM.PN ---
Subjective - Date & Time of Evaluation Date of Evaluation: 12/12/17 Time of Evaluation: 14:00 - Subjective Subjective: Patient complains of constipation Has no fever has no chest pain or SOB Objective - Vital Signs/Intake and Output Vital Signs (last 24 hours): Temp Pulse Resp BP Pulse Ox 97.9 F 76 20 121/67 99 12/12/17 17:00 12/12/17 17:00 12/12/17 17:00 12/12/17 17:00 12/12/17 17:00 - Medications Medications: Current Medications Acetaminophen/Codeine Phosphate (Tylenol/Codeine 300 Mg/30 Mg) 1 tab PO Q6 PRN PRN Reason: Pain, moderate (4-7) Al Hydrox/Mg Hydrox/Simethicone (Maalox Plus 30 Ml) 30 ml PO DAILY PRN PRN Reason: Heartburn Last Admin: 12/11/17 12:34 Dose: 30 ml Brimonidine Tartrate (Alphagan 0.2% Opht) 1 drop OU BID [facility] Last Admin: 12/12/17 17:59 Dose: 1 drop Diltiazem HCl (Cardizem Cd) 360 mg PO DAILY [facility] Last Admin: 12/12/17 08:23 Dose: 360 mg Docusate Sodium (Colace) 100 mg PO BID [facility] Last Admin: 12/12/17 16:42 Dose: 100 mg Dorzolamide HCl (Trusopt) 1 drop OU BID [facility] Last Admin: 12/12/17 18:00 Dose: 1 drop Gabapentin (Neurontin) 300 mg PO TID [facility] Last Admin: 12/12/17 16:44 Dose: 300 mg Hydrocortisone (Anusol-Hc) [address] BID [facility] Last Admin: 12/12/17 16:43 Dose: 30 applic Hydromorphone HCl (Dilaudid) 1 mg IVP Q4H PRN PRN Reason: Pain, severe (8-10) Last Admin: 12/11/17 11:34 Dose: 1 mg Ceftriaxone Sodium 1 gm/ (Sodium Chloride) 100 mls @ 100 mls/hr IVPB DAILY [facility] PRN Reason: Protocol Last Admin: 12/12/17 08:25 Dose: 100 mls/hr Lactic Acid (Lac-Hydrin 12% Cream (140 G)) 1 ea TOP BID [facility] Last Admin: 12/12/17 16:44 Dose: 1 applic Lactulose (Enulose) 20 gm PO TID PRN PRN Reason: Constipation Last Admin: 12/12/17 13:19 Dose: 20 gm Latanoprost (Xalatan Opht) [address] [facility] Last Admin: 12/11/17 21:54 Dose: 1 drop Lisinopril (Zestril) 10 mg PO DAILY [facility] Last Admin: 12/12/17 08:27 Dose: 10 mg Metformin HCl (Glucophage) 1,000 mg PO DAILY [facility] Last Admin: 12/12/17 08:23 Dose: 1,000 mg Pantoprazole Sodium (Protonix Ec Tab) 40 mg PO DAILY [facility] Last Admin: 12/12/17 08:22 Dose: 40 mg Phenazopyridine HCl (Pyridium) 100 mg PO TID [facility] Last Admin: 12/12/17 16:45 Dose: 100 mg Pravastatin Sodium (Pravachol) 40 mg PO DAILY [facility] Last Admin: 12/12/17 08:22 Dose: 40 mg Senna/Docusate Sodium (Senokot S 50 Mg-8.6 Mg) [address] [facility] Simethicone (Mylicon Chew Tab) 80 mg PO TID [facility] Last Admin: 12/12/17 16:45 Dose: 80 mg - Labs Labs: 12/12/17 05:30 12/12/17 05:30 PT 29.1 Seconds (9.8-13.1) H 12/12/17 05:30 INR 2.6 (0.9-1.2) H 12/12/17 05:30 APTT 44.6 Seconds (25.6-37.1) H 12/10/17 23:31 - Head Exam Head Exam: NORMAL INSPECTION - Eye Exam Eye Exam: Normal appearance - ENT Exam ENT Exam: Mucous Membranes Moist - Respiratory Exam Respiratory Exam: Clear to Ausculation Bilateral - Cardiovascular Exam Cardiovascular Exam: Irregular Rhythm - GI/Abdominal Exam GI & Abdominal Exam: Normal Bowel Sounds - Neurological Exam Neurological Exam: Awake, Oriented x3 - Psychiatric Exam Psychiatric exam: Normal Mood - Skin Skin Exam: Normal Color Assessment and Plan (1) Urinary tract infection Status: Acute (2) Hematuria Status: Acute (3) Diabetes mellitus type 2 in obese Status: Acute (4) Atrial fibrillation Status: Acute (5) Chest pain Status: Acute (6) Nephrolithiasis Status: Acute (7) Staghorn calculus Status: Acute - Assessment and Plan (Free Text) Plan: Con tmeds Cont tx Urology eval lactulose cont pain meds and iv antibiotics follow up urine c and S
[2017-12-12] MEDS: Latanoprost 0.005% Opht SOUTION OS SCH (21:01)
[2017-12-12] MEDS: Docusate-Senna 50 mg-8.6 mg Tab PO SCH (21:04)
--- NOTE | 2017-12-12 21:46 | PN ---
DATE: 12/12/2017 FOLLOWUP NOTE TIME OF FOLLOWUP: Roughly 04:15 p.m. SUBJECTIVE: The patient is resting much more comfortably today. Her urine culture was positive for gram-negative rods. The patient is currently on IV Rocephin for treatment of her acute left pyelonephritis. She also complains of constipation and has not had a bowel movement for 4 days. Discussed future treatments for her left 1.6 x 0.9 cm kidney stone, status post ESWL x2 with passage of stone fragments. This was discussed with the son in front of his mother, and son states that they are both very nervous of her having any more procedures done for treatment of her kidney stone. The son states that Dr. Mi, her supervisor [employer], says that he will give her some medications to try to prevent the stone from growing in size, and they seem to prefer this over any further treatments for this left kidney stone such as repeat left renal ESWL versus left percutaneous nephrolithotomy. PHYSICAL EXAMINATION: Today, ABDOMEN: Soft, nondistended, nontender. No CVA tenderness. No suprapubic tenderness. VITAL SIGNS: She currently remains afebrile. LABORATORY DATA: Her laboratory evaluation today on 12/12/2017 shows the CBC with WBC count of 5.1, hemoglobin of 12.7, and a hematocrit of 37.6. Her PT was 29.1 which was elevated and her INR was 2.6 also elevated, on Coumadin. Her chem profile shows a sodium of 139, potassium 4.1, chloride 104, CO2 of 25, BUN and creatinine of 11 and 0.5 respectively with a GFR of greater than 60. Random glucose is 143. Calcium 9.2. Her last urinalysis on 12/11/2017 shows the color was mine, clarity was turbid, pH 6, specific gravity 1.022, protein greater than 500, glucose negative, ketones negative, blood large, nitrite negative, bilirubin negative, urobilinogen 0.2 to 1, large leukocyte esterase, 2265 rbc's, and 2218 wbc's per high-power field. DIAGNOSTIC IMPRESSION: For this patient, 1. A 1.6 x 0.9 cm left renal stone with some moderate left upper pole hydronephrosis. This stone extends from the upper pole to lower pole. 2. Acute left pyelonephritis. PLAN: For this patient will be to eventually discharge the patient on p.o. antibiotics, pending the culture and sensitivities. We can discuss further treatment for the kidney stone in the office within two weeks. Rony Issa MD [facility]
[2017-12-13 06:55] LABS: INR 2.7 (0.9-1.2)
[2017-12-13] MEDS: Brimonidine 0.2% 50 DROP/5 ML BOTTLE OU SCH ×2 (09:35→17:33)
[2017-12-13] MEDS: Hydrocortisone 2.5% (Rectal) CREAM PR SCH ×2 (09:35→17:30)
[2017-12-13] MEDS: diltiaZEM 180 mg/24 Hours CD Cap PO SCH (09:36)
[2017-12-13] MEDS: Ammonium Lactate 12% Cream (140 g) TOP SCH ×2 (09:37→17:32)
[2017-12-13] MEDS: Pravastatin Sodium 40 MG TAB PO SCH (09:37)
[2017-12-13] MEDS: Pantoprazole 40 mg EC Tab PO SCH (09:37)
[2017-12-13] MEDS: Dorzolamide 2% Ophth Soln OU SCH ×2 (09:37→17:31)
--- NOTE | 2017-12-13 09:37 | CARD ---
APPROVED REPORT EKG Measurement Heart [id number] <Conclusion> Poor data quality, interpretation may be adversely affected Atrial fibrillation Nonspecific ST and T wave abnormality Abnormal ECG
[2017-12-13] MEDS: Simethicone 80 mg Chewtab PO SCH ×3 (09:38→17:32)
[2017-12-13] MEDS: Acetaminophen-Codeine 300/30 mg Tab PO PRN (09:51)
--- NOTE | 2017-12-13 10:18 | CARD ---
APPROVED REPORT EKG Measurement Heart [id number] <Conclusion> Atrial fibrillation Left axis deviation Nonspecific ST abnormality Abnormal ECG
--- NOTE | 2017-12-13 11:40 | CP.PCM.CON ---
History of Present Illness - History of Present Illness History of Present Illness: 62 y/o female admitted for fever, hematuria , chills and flank pains x 2 days. Has a hx of recurrent kidney stones and hx of lithotripsy x [address] abdomen showed staghorn calculus 1.6 x 0.9 cm at the left renal pelvis and associated hydronephropsis upper pole. ID consulted for antibiotic maangement PMH - DM 2 hyperlipidemia atrial fib Review of Systems - Constitutional Constitutional: absent: As Per HPI, Anorexia, Chills, Daytime Sleepiness, Excessive Sweating, Fatigue, Fever, Frequent Falls, Headache, Increased Appetite , Lethargy, Malaise, Night Sweats, Snoring, Sleep Apnea, Weight Gain, Weight Loss, Weakness, Other - EENT Eyes: absent: As Per HPI, Blind Spots, Blurred Vision, Change in Vision, Decreased Night Vision, Diplopia, Discharge, Dry Eye, Exophthalmos, Floaters, Irritation, Itchy Eyes, Loss of Peripheral Vision, Pain, Photophobia, Requires Corrective Lenses, Sees Flashes, Spots in Vision, Tunnel Vision, Other Visual Disturbances, Loss of Vision, Other Ears: absent: As Per HPI, Decreased Hearing, Ear Discharge, Ear Pain, Tinnitus, Abnormal Hearing, Disequilibrium, Dizziness, Other Nose/Mouth/Throat: absent: As Per HPI, Epistaxis, Nasal Congestion, Nasal Discharge, Nasal Obstruction, Nasal Trauma, Nose Pain, Post Nasal Drip, Sinus Pain, Sinus Pressure, Bleeding Gums, Change in Voice, Dental Pain, Dry Mouth, Dysphagia, Halitosis, Hoarsness, Lip Swelling, Mouth Lesions, Mouth Pain, Odynophagia, Sore Throat, Throat Swelling, Tongue Swelling, Facial Pain, Neck Pain, Neck Mass, Other - Breasts Breasts: absent: As Per HPI, Change in Shape, Mass, Pain, Nipple Discharge, Nipple Inversion, Skin Changes, Swelling, Other - Cardiovascular Cardiovascular: Chest Pain - Respiratory Respiratory: absent: As Per HPI, Cough, Dyspnea, Hemoptysis, Dyspnea on Exertion , Wheezing, Snoring, Stridor, Pain on Inspiration, Chest Congestion, Excessive Mucous Production, Change in Mucous Color, Pain with Coughing, Other - Gastrointestinal Gastrointestinal: absent: As Per HPI, Abdominal Pain, Belching, Bloating, Change in Bowel Habits, Change in Stool Character, Coffee Ground Emesis, Constipation, Cramping, Diarrhea, Dyspepsia, Dysphagia, Early Satiety, Excessive Flatus, Fecal Incontinence, Heartburn, Hematemesis, Hematochezia, Loose Stools, Melena, Nausea, Odynophagia, Temesmus, Vomiting, Other - Genitourinary Genitourinary: Freq UTI - Musculoskeletal Musculoskeletal: absent: As Per HPI, Abnormal Gait, Arthralgias, Atrophy, Back Pain, Deformity, Joint Swelling, Limited Range of Motion, Loss of Height, Muscle Cramps, Muscle Weakness, Myalgias, Neck Pain, Numbness, Radiating Pain into Limb, Stiffness, Tingling, Other - Integumentary Integumentary: absent: As Per HPI, Acne, Alopecia, Bleeding Lesions, Change in Hair, Change in Nails, Change in Pigmentation, Changing Lesions, Dry Skin, Erythema, Furuncle, Hirsutism, Lesions, New Lesions, Non-Healing Lesions, Photosensitivity, Pruritus, Rash, Skin Pain, Skin Ulcer, Sores, Striae, Swelling , Unusual Bruising, Wounds, Jaundice, Other - Neurological Neurological: absent: As Per HPI, Abnormal Gait, Abnormal Hearing, Abnormal Movements, Abnormal Speech, Behavioral Changes, Burning Sensations, Confusion, Convulsions, Disequilibrium, Dizziness, Numbness, Focal Weakness, Frequent Falls , Headaches, Lack of Coordination, Loss of Vision, Memory Loss, Paresthesias, Radicular Pain, Restless Legs, Sensory Deficit, Syncope, Tingling, Tremor, Vertigo, Weakness, Other Visual Disturbances, Other - Psychiatric Psychiatric: absent: As Per HPI, Abnormal Sleep Pattern, Anhedonia, Anxiety, Auditory Hallucinations, Behavioral Changes, Change in Appetite, Change in Libido, Confusion, Depression, Difficulty Concentrating, Hallucinations, Homicidal Ideation, Hopelessness, Irritability, Memory Loss, Mood Swings, Panic Attacks, Paranoia, Suicidal Ideation, Visual Hallucinations, Tactile Hallucinations, Other - Endocrine Endocrine: absent: As Per HPI, Change in Body Appearance, Change in Libido, Cold Intolorance, Deepening of Voice, Excessive Sweating, Fatigue, Flushing, Heat Intolorance, Increase in Ring/Shoe/Hat Size, Palpitations, Polydipsia, Polyphagia, Polyuria, Other - Hematologic/Lymphatic Hematologic: absent: As Per HPI, Easy Bleeding, Easy Bruising, Lymphadenopathy, Other Past Patient History - Past Social History Smoking Status: Never Smoked - CARDIAC Hx Cardiac Disorders: Yes (CARD ARRHTHMIA, HTN) - HEENT Hx HEENT Problems: Yes (GLAUCOMA) - RENAL Other/Comment: kidney stone - ENDOCRINE/METABOLIC Hx Diabetes Mellitus Type 2: Yes - MUSCULOSKELETAL/RHEUMATOLOGICAL Hx Falls: No - GASTROINTESTINAL Other/Comment: gall stone - GENITOURINARY/GYNECOLOGICAL Hx Genitourinary Disorders: Yes (KIDNEY STONES, LITHOTRIPSY) - PSYCHIATRIC Hx Substance Use: No - SURGICAL HISTORY Other/Comment: kidney stone lithotripsy - ANESTHESIA Hx Anesthesia: Yes Hx Anesthesia Reactions: No Meds Allergies/Adverse Reactions: Allergies Allergy/AdvReac Type Severity Reaction Status Date / Time No Known Allergies Allergy Verified 12/10/17 20:15 - Medications Medications: Current Medications Acetaminophen/Codeine Phosphate (Tylenol/Codeine 300 Mg/30 Mg) 1 tab PO Q6 PRN PRN Reason: Pain, moderate (4-7) Last Admin: 12/13/17 09:51 Dose: 1 tab Al Hydrox/Mg Hydrox/Simethicone (Maalox Plus 30 Ml) 30 ml PO DAILY PRN PRN Reason: Heartburn Last Admin: 12/11/17 12:34 Dose: 30 ml Brimonidine Tartrate (Alphagan 0.2% Opht) 1 drop OU BID [facility] Last Admin: 12/13/17 09:35 Dose: 1 drop Cyclobenzaprine HCl (Flexeril) 10 mg PO HS PRN PRN Reason: Muscle spasm Diltiazem HCl (Cardizem Cd) 360 mg PO DAILY [facility] Last Admin: 12/13/17 09:36 Dose: 360 mg Docusate Sodium (Colace) 100 mg PO BID [facility] Last Admin: 12/13/17 09:35 Dose: 100 mg Dorzolamide HCl (Trusopt) 1 drop OU BID [facility] Last Admin: 12/13/17 09:37 Dose: 1 drop Gabapentin (Neurontin) 300 mg PO TID [facility] Last Admin: 12/13/17 09:36 Dose: 300 mg Hydrocortisone (Anusol-Hc) [address] BID [facility] Last Admin: 12/13/17 09:35 Dose: 30 applic Piperacillin Sod/Tazobactam (Sod 3.375 gm/ Sodium Chloride) 100 mls @ 100 mls/ hr IVPB Q8 [facility] PRN Reason: Protocol Lactic Acid (Lac-Hydrin 12% Cream (140 G)) 1 ea TOP BID [facility] Last Admin: 12/13/17 09:37 Dose: 1 applic Lactulose (Enulose) 20 gm PO TID PRN PRN Reason: Constipation Last Admin: 12/12/17 13:19 Dose: 20 gm Latanoprost (Xalatan Opht) 1 drop OS HS [facility] Last Admin: 12/12/17 21:01 Dose: 1 drop Lisinopril (Zestril) 10 mg PO DAILY [facility] Last Admin: 12/13/17 09:42 Dose: 10 mg Metformin HCl (Glucophage) 1,000 mg PO DAILY [facility] Last Admin: 12/13/17 09:37 Dose: 1,000 mg Pantoprazole Sodium (Protonix Ec Tab) 40 mg PO DAILY [facility] Last Admin: 12/13/17 09:37 Dose: 40 mg Phenazopyridine HCl (Pyridium) 100 mg PO TID [facility] Last Admin: 12/13/17 09:37 Dose: 100 mg Pravastatin Sodium (Pravachol) 40 mg PO DAILY [facility] Last Admin: 12/13/17 09:37 Dose: 40 mg Senna/Docusate Sodium (Senokot S 50 Mg-8.6 Mg) 2 tab PO HS [facility] Last Admin: 12/12/17 21:04 Dose: 2 tab Simethicone (Mylicon Chew Tab) 80 mg PO TID [facility] Last Admin: 12/13/17 09:38 Dose: 80 mg Physical Exam - Constitutional Appears: No Acute Distress, Chronically Ill - Head Exam Head Exam: ATRAUMATIC, NORMOCEPHALIC - Eye Exam Eye Exam: PERRL. absent: Scleral icterus - ENT Exam ENT Exam: Mucous Membranes Dry - Neck Exam Neck exam: Negative for: Lymphadenopathy - Respiratory Exam Respiratory Exam: Decreased Breath Sounds, Clear to Auscultation Bilateral - Cardiovascular Exam Cardiovascular Exam: REGULAR RHYTHM, +S1, +S2 - GI/Abdominal Exam GI & Abdominal Exam: Diminished Bowel Sounds, Soft. absent: Tenderness - Rectal Exam Rectal Exam: Deferred - Exam Exam: NORMAL INSPECTION - Extremities Exam Extremities exam: Positive for: pedal pulses present. Negative for: calf tenderness, pedal edema, tenderness - Back Exam Back exam: CVA tenderness (L), CVA tenderness (R) - Neurological Exam Neurological exam: Alert, CN II-XII Intact, Oriented x3, Reflexes Normal - Psychiatric Exam Psychiatric exam: Normal Mood - Skin Skin Exam: Dry Results - Vital Signs Recent Vital Signs: Last Vital Signs Temp 97.7 F 12/13/17 07:59 Pulse 88 12/13/17 09:42 Resp 19 12/13/17 07:59 BP 170/74 H 12/13/17 09:42 Pulse Ox 98 12/13/17 07:59 - Labs Result Diagrams: 12/12/17 05:30 12/12/17 05:30 Labs: Laboratory Results - last 24 hr 12/13/17 05:20 PT 30.0 H INR 2.7 H Assessment & Plan (1) Atrial fibrillation Status: Acute (2) Chest pain Status: Acute (3) Diabetes mellitus type 2 in obese Status: Acute (4) Nephrolithiasis Status: Acute (5) Staghorn calculus Status: Acute (6) Urinary tract infection Status: Acute
[2017-12-13] MEDS: Piperacillin/Tazobact 3.375 GM in Sodium Chloride 0.9% 100 ML IVPB SCH ×2 (12:43→18:19)
--- NOTE | 2017-12-13 16:01 | CP.PCM.PN ---
Subjective - Date & Time of Evaluation Date of Evaluation: 12/13/17 Time of Evaluation: 09:10 - Subjective Subjective: Assessment: Stable UTI with left staghorn calculi diabetes Mellitus ( years), hypertension (years) morbid obesity hyperlipidemia, a fib, left kidney stone s/p ESWL and stent placements Plan renal function normal. repeat urine studies for protein once UTI better abx per primary team f/u gu for management for staghorn bp elevated today - ? 2/2 to pain - can inc lisinoopril to 20 if remains elevated S: seen and examined, pain mildly improved Physical Examination: General Appearance: Comfortable, in no acute respiratory distress, co-operative . obese Vitals reviewed and noted as below Head; Atraumatic, normocephalic ENT: no ulcers no thrush. Tongue is midline. Oropharynx: no rash or ulcers. EYES: Pupils are equal, round Sclera is anicteric. Neck; supple no lymphadenopathy, no thyromegaly or bruit Lungs: Normal respiratory rate/effort. Breath sounds bilateral equal and clear Heart: Normal rate. s1s2 normal. No rub or gallop. Extremities: no edema. No varicose veins Neurological: Patient is alert, awake and oriented to person, place and time. No focal deficit. Strength bilateral appropriate and equal Skin: Warm and dry. Normal turgor. No rash. Palpitation: Normal elasticity for age Abdomen: Abdomen is soft. Bowel sounds +. There is no abdominal tenderness, no guarding/rigidity no organomegaly Psych: normal insight and normal affect/mood MSK: no joint tenderness or swelling. Digits and nails normal, no deformity : kidney or bladder not palpable Labs/imaging reviewed. Past medical history, past surgical history, family history, social history, allergy reviewed and noted as below Family hx: no hx of CKD. Rest non-contributory Objective - Vital Signs/Intake and Output Vital Signs (last 24 hours): Temp Pulse Resp BP Pulse Ox 97.7 F 88 19 170/74 H 98 12/13/17 09:00 12/13/17 09:42 12/13/17 09:00 12/13/17 09:42 12/13/17 09:00 - Medications Medications: Current Medications Acetaminophen/Codeine Phosphate (Tylenol/Codeine 300 Mg/30 Mg) 1 tab PO Q6 PRN PRN Reason: Pain, moderate (4-7) Last Admin: 07/09/18 09:51 Dose: 1 tab Al Hydrox/Mg Hydrox/Simethicone (Maalox Plus 30 Ml) 30 ml PO DAILY PRN PRN Reason: Heartburn Last Admin: 12/11/17 12:34 Dose: 30 ml Brimonidine Tartrate (Alphagan 0.2% Opht) 1 drop OU BID [facility] Last Admin: 12/13/17 09:35 Dose: 1 drop Cyclobenzaprine HCl (Flexeril) 10 mg PO HS PRN PRN Reason: Muscle spasm Diltiazem HCl (Cardizem Cd) 360 mg PO DAILY [facility] Last Admin: 12/13/17 09:36 Dose: 360 mg Docusate Sodium (Colace) 100 mg PO BID [facility] Last Admin: 12/13/17 09:35 Dose: 100 mg Dorzolamide HCl (Trusopt) 1 drop OU BID [facility] Last Admin: 12/13/17 09:37 Dose: 1 drop Gabapentin (Neurontin) 300 mg PO TID [facility] Last Admin: 12/13/17 09:36 Dose: 300 mg Hydrocortisone (Anusol-Hc) 30 applic [address] BID [facility] Last Admin: 12/13/17 09:35 Dose: 30 applic Piperacillin Sod/Tazobactam (Sod 3.375 gm/ Sodium Chloride) 100 mls @ 100 mls/ hr IVPB Q8 [facility] PRN Reason: Protocol Last Admin: 12/13/17 12:43 Dose: 100 mls/hr Lactic Acid (Lac-Hydrin 12% Cream (140 G)) 1 ea TOP BID [facility] Last Admin: 12/13/17 09:37 Dose: 1 applic Lactulose (Enulose) 20 gm PO TID PRN PRN Reason: Constipation Last Admin: 12/12/17 13:19 Dose: 20 gm Latanoprost (Xalatan Opht) 1 drop OS HS [facility] Last Admin: 12/12/17 21:01 Dose: 1 drop Lisinopril (Zestril) 10 mg PO DAILY [facility] Last Admin: 12/13/17 09:42 Dose: 10 mg Metformin HCl (Glucophage) 1,000 mg PO DAILY [facility] Last Admin: 12/13/17 09:37 Dose: 1,000 mg Pantoprazole Sodium (Protonix Ec Tab) 40 mg PO DAILY [facility] Last Admin: 12/13/17 09:37 Dose: 40 mg Phenazopyridine HCl (Pyridium) 100 mg PO TID [facility] Last Admin: 12/13/17 09:37 Dose: 100 mg Pravastatin Sodium (Pravachol) 40 mg PO DAILY [facility] Last Admin: 12/13/17 09:37 Dose: 40 mg Senna/Docusate Sodium (Senokot S 50 Mg-8.6 Mg) 2 tab PO HS [facility] Last Admin: 12/12/17 21:04 Dose: 2 tab Simethicone (Mylicon Chew Tab) 80 mg PO TID [facility] Last Admin: 12/13/17 09:38 Dose: 80 mg Warfarin Sodium (Coumadin) 3 mg PO QD5 [facility] PRN Reason: Protocol Stop: 12/13/17 17:01 - Labs Labs: 12/12/17 05:30 12/12/17 05:30 PT 30.0 Seconds (9.8-13.1) H 12/13/17 05:20 INR 2.7 (0.9-1.2) H 12/13/17 05:20 APTT 44.6 Seconds (25.6-37.1) H 12/10/17 23:31
--- NOTE | 2017-12-13 17:26 | US ---
PROCEDURE: Bilateral lower extremity venous duplex Doppler. HISTORY: leg pain COMPARISON: None available. TECHNIQUE: Bilateral common femoral, superficial femoral, popliteal and posterior tibial veins were evaluated. Flow was assessed with color Doppler, compressibility, assessment of phasic flow and augmentation response. FINDINGS: COMMON FEMORAL VEIN: Right CFV: Unremarkable. Left CFV: Unremarkable. SUPERFICIAL FEMORAL VEIN: Right SFV: Unremarkable. Left SFV: Unremarkable. POPLITEAL VEIN: Right Popliteal: Unremarkable. Left Popliteal: Unremarkable. POSTERIOR TIBIAL VEIN: Right PTV: Unremarkable. Left PTV: Unremarkable. OTHER FINDINGS: None. IMPRESSION: No evidence of deep venous thrombosis.
--- NOTE | 2017-12-13 17:28 | US ---
PROCEDURE: Duplex ultrasound of the bilateral lower extremity arteries. HISTORY: leg pain COMPARISON: None available. TECHNIQUE: Grayscale and duplex Doppler evaluation of the bilateral common femoral, superficial femoral, popliteal, posterior tibial and dorsalis pedis arteries was performed.. FINDINGS: RIGHT LOWER EXTREMITY: RIGHT COMMON FEMORAL ARTERY: Widely patent. Maximal flow velocity of 52.1 cm/s. RIGHT SUPERFICIAL FEMORAL ARTERY: Widely patent. Maximal flow velocity of 53.9 cm/s. RIGHT POPLITEAL ARTERY:Widely patent. Maximal flow velocity of 34.4 cm/s. RIGHT POSTERIOR TIBIAL ARTERY: Widely patent. Maximal flow velocity of 54.9 cm/s. RIGHT DORSALIS PEDIS ARTERY: Widely patent. Maximal flow velocity of 38.4 cm/s. LEFT LOWER EXTREMITY: LEFT COMMON FEMORAL ARTERY: Widely patent. Maximal flow velocity of 80.1 in cm/s. LEFT SUPERFICIAL FEMORAL ARTERY: Widely patent. Maximal flow velocity of 65.0 cm/s. LEFT POPLITEAL ARTERY:Widely patent. Maximal flow velocity of 37.9 cm/s. LEFT POSTERIOR TIBIAL ARTERY: Widely patent. Maximal flow velocity of 32.2 cm/s. LEFT DORSALIS PEDIS ARTERY: Widely patent. Maximal flow velocity of 22.0 cm/s. OTHER FINDINGS: None. IMPRESSION: Normal Duplex Doppler of the bilateral lower extremity arteries.
[2017-12-13] MEDS: Latanoprost 0.005% Opht SOUTION OS SCH (21:21)
[2017-12-13] MEDS: Docusate-Senna 50 mg-8.6 mg Tab PO SCH (21:21)
[2017-12-14] MEDS: Piperacillin/Tazobact 3.375 GM in Sodium Chloride 0.9% 100 ML IVPB SCH ×2 (01:16→08:30)
[2017-12-14 06:17] LABS: HEMOGLOBIN 13.7 g/dL (12.0-16.0); MEAN CELL VOLUME 88.7 fl (81.0-99.0); MEAN CORPUSCULAR HEMOGLOBIN 29.6 pg (27.0-31.0); MEAN CORPUSCULAR HGB CONC 33.3 g/dL (33.0-37.0); RBC 4.62 Mil/uL (3.80-5.20); RED CELL DISTRIBUTION WIDTH 13.7 % (11.5-14.5); WHITE BLOOD COUNT 5.6 K/uL (4.8-10.8)
[2017-12-14 06:31] LABS: BLOOD UREA NITROGEN 14 mg/dl (7-17); CALCIUM 9.3 mg/dL (8.4-10.2); GFR AFRICAN-AMERICAN > 60; GFR NON-AFRICAN AMERICAN > 60
[2017-12-14 06:38] LABS: INR 2.6 (0.9-1.2); PROTHROMBIN TIME 29.9 Seconds (9.8-13.1)
[2017-12-14] MEDS: Ammonium Lactate 12% Cream (140 g) TOP SCH ×2 (08:27→16:43)
[2017-12-14] MEDS: Brimonidine 0.2% 50 DROP/5 ML BOTTLE OU SCH ×2 (08:28→16:43)
[2017-12-14] MEDS: Dorzolamide 2% Ophth Soln OU SCH ×2 (08:28→16:43)
[2017-12-14] MEDS: Hydrocortisone 2.5% (Rectal) CREAM PR SCH ×2 (08:28→16:42)
[2017-12-14] MEDS: diltiaZEM 180 mg/24 Hours CD Cap PO SCH (08:29)
[2017-12-14] MEDS: Simethicone 80 mg Chewtab PO SCH ×3 (08:29→16:45)
[2017-12-14] MEDS: Pravastatin Sodium 40 MG TAB PO SCH (08:30)
[2017-12-14] MEDS: Pantoprazole 40 mg EC Tab PO SCH (08:30)
[2017-12-14] MEDS: Acetaminophen-Codeine 300/30 mg Tab PO PRN (11:30)
--- NOTE | 2017-12-14 11:34 | CP.PCM.PN ---
Subjective - Date & Time of Evaluation Date of Evaluation: 12/13/17 Time of Evaluation: 10:10 - Subjective Subjective: Patient continues to have flank pain No fever Still with some hematuria Noted uro notes that stone will be dealt with in the outpatient. Noted pseudomonas in urine sen to zyvox. Objective - Vital Signs/Intake and Output Vital Signs (last 24 hours): Temp Pulse Resp BP Pulse Ox 97.3 F L 80 19 105/71 96 12/14/17 08:10 12/14/17 11:31 12/14/17 08:10 12/14/17 11:31 12/14/17 08:10 - Medications Medications: Current Medications Acetaminophen/Codeine Phosphate (Tylenol/Codeine 300 Mg/30 Mg) 1 tab PO Q6 PRN PRN Reason: Pain, moderate (4-7) Last Admin: 12/14/17 11:30 Dose: 1 tab Al Hydrox/Mg Hydrox/Simethicone (Maalox Plus 30 Ml) 30 ml PO DAILY PRN PRN Reason: Heartburn Last Admin: 12/11/17 12:34 Dose: 30 ml Brimonidine Tartrate (Alphagan 0.2% Opht) 1 drop OU BID [facility] Last Admin: 12/14/17 08:28 Dose: 1 drop Cyclobenzaprine HCl (Flexeril) 10 mg PO HS PRN PRN Reason: Muscle spasm Diltiazem HCl (Cardizem Cd) 360 mg PO DAILY [facility] Last Admin: 12/14/17 08:29 Dose: 360 mg Docusate Sodium (Colace) 100 mg PO BID [facility] Last Admin: 12/14/17 08:29 Dose: 100 mg Dorzolamide HCl (Trusopt) 1 drop OU BID [facility] Last Admin: 12/14/17 08:28 Dose: 1 drop Gabapentin (Neurontin) 300 mg PO TID [facility] Last Admin: 12/14/17 08:30 Dose: 300 mg Hydrocortisone (Anusol-Hc) 30 applic [place] BID [facility] Last Admin: 12/14/17 08:28 Dose: 30 applic Piperacillin Sod/Tazobactam (Sod 3.375 gm/ Sodium Chloride) 100 mls @ 100 mls/ hr IVPB Q8 [facility] PRN Reason: Protocol Last Admin: 12/14/17 08:30 Dose: 100 mls/hr Cefepime HCl 1 gm/ Sodium (Chloride) 100 mls @ 100 mls/hr IVPB Q8 [facility] PRN Reason: Protocol Lactic Acid (Lac-Hydrin 12% Cream (140 G)) 1 ea TOP BID [facility] Last Admin: 12/14/17 08:27 Dose: 1 applic Lactulose (Enulose) 20 gm PO TID PRN PRN Reason: Constipation Last Admin: 12/12/17 13:19 Dose: 20 gm Latanoprost (Xalatan Opht) 1 drop OS HS [facility] Last Admin: 12/13/17 21:21 Dose: 1 drop Lisinopril (Zestril) 10 mg PO DAILY [facility] Last Admin: 12/14/17 11:31 Dose: 10 mg Metformin HCl (Glucophage) 1,000 mg PO DAILY [facility] Last Admin: 12/14/17 08:29 Dose: 1,000 mg Pantoprazole Sodium (Protonix Ec Tab) 40 mg PO DAILY [facility] Last Admin: 12/14/17 08:30 Dose: 40 mg Phenazopyridine HCl (Pyridium) 100 mg PO TID [facility] Last Admin: 12/14/17 08:29 Dose: 100 mg Pravastatin Sodium (Pravachol) 40 mg PO DAILY [facility] Last Admin: 12/14/17 08:30 Dose: 40 mg Senna/Docusate Sodium (Senokot S 50 Mg-8.6 Mg) 2 tab PO HS [facility] Last Admin: 12/13/17 21:21 Dose: 2 tab Simethicone (Mylicon Chew Tab) 80 mg PO TID [facility] Last Admin: 12/14/17 08:29 Dose: 80 mg - Labs Labs: 12/14/17 05:35 12/14/17 05:35 PT 29.9 Seconds (9.8-13.1) H 12/14/17 05:35 INR 2.6 (0.9-1.2) H 12/14/17 05:35 APTT 44.6 Seconds (25.6-37.1) H 12/10/17 23:31 - Head Exam Head Exam: NORMAL INSPECTION - Eye Exam Eye Exam: Normal appearance - ENT Exam ENT Exam: Mucous Membranes Moist - Respiratory Exam Respiratory Exam: Clear to Ausculation Bilateral - Neurological Exam Neurological Exam: Awake, Oriented x3 - Psychiatric Exam Psychiatric exam: Normal Mood Assessment and Plan (1) Urinary tract infection Status: Acute (2) Hematuria Status: Acute (3) Diabetes mellitus type 2 in obese Status: Acute (4) Atrial fibrillation Status: Acute (5) Chest pain Status: Acute (6) Nephrolithiasis Status: Acute (7) Staghorn calculus Status: Acute - Assessment and Plan (Free Text) Plan: Cont meds Con ttx Cont iv antibiotic s discuss with ID re duration of antibiotics PT eval. TCU eval.
--- NOTE | 2017-12-14 11:36 | CP.PCM.PCO ---
Physician Communication Note - Physician Communication Note Physician Communication Note: Per FLORY, Dr. Vora, per
--- NOTE | 2017-12-14 11:57 | CP.PCM.PN ---
Subjective - Date & Time of Evaluation Date of Evaluation: 12/14/17 Time of Evaluation: 11:57 - Subjective Subjective: Patient awake and conscious not in acute distress she is feeling much better. Objective - Vital Signs/Intake and Output Vital Signs (last 24 hours): Temp Pulse Resp BP Pulse Ox 97.3 F L 80 19 105/71 96 12/14/17 08:10 12/14/17 11:31 12/14/17 08:10 12/14/17 11:31 12/14/17 08:10 - Medications Medications: Current Medications Acetaminophen/Codeine Phosphate (Tylenol/Codeine 300 Mg/30 Mg) 1 tab PO Q6 PRN PRN Reason: Pain, moderate (4-7) Last Admin: 12/14/17 11:30 Dose: 1 tab Al Hydrox/Mg Hydrox/Simethicone (Maalox Plus 30 Ml) 30 ml PO DAILY PRN PRN Reason: Heartburn Last Admin: 12/11/17 12:34 Dose: 30 ml Brimonidine Tartrate (Alphagan 0.2% Opht) 1 drop OU BID [facility] Last Admin: 12/14/17 08:28 Dose: 1 drop Cyclobenzaprine HCl (Flexeril) 10 mg PO HS PRN PRN Reason: Muscle spasm Diltiazem HCl (Cardizem Cd) 360 mg PO DAILY [facility] Last Admin: 12/14/17 08:29 Dose: 360 mg Docusate Sodium (Colace) 100 mg PO BID [facility] Last Admin: 12/14/17 08:29 Dose: 100 mg Dorzolamide HCl (Trusopt) 1 drop OU BID [facility] Last Admin: 12/14/17 08:28 Dose: 1 drop Gabapentin (Neurontin) 300 mg PO TID [facility] Last Admin: 12/14/17 08:30 Dose: 300 mg Hydrocortisone (Anusol-Hc) [address] BID [facility] Last Admin: 12/14/17 08:28 Dose: 30 applic Cefepime HCl 1 gm/ Sodium (Chloride) 100 mls @ 100 mls/hr IVPB Q8 [facility] PRN Reason: Protocol Lactic Acid (Lac-Hydrin 12% Cream (140 G)) 1 ea TOP BID [facility] Last Admin: 12/14/17 08:27 Dose: 1 applic Lactulose (Enulose) 20 gm PO TID PRN PRN Reason: Constipation Last Admin: 12/12/17 13:19 Dose: 20 gm Latanoprost (Xalatan Opht) 1 drop OS HS [facility] Last Admin: 12/13/17 21:21 Dose: 1 drop Lisinopril (Zestril) 10 mg PO DAILY [facility] Last Admin: 12/14/17 11:31 Dose: 10 mg Metformin HCl (Glucophage) 1,000 mg PO DAILY [facility] Last Admin: 12/14/17 08:29 Dose: 1,000 mg Pantoprazole Sodium (Protonix Ec Tab) 40 mg PO DAILY [facility] Last Admin: 12/14/17 08:30 Dose: 40 mg Phenazopyridine HCl (Pyridium) 100 mg PO TID [facility] Last Admin: 12/14/17 08:29 Dose: 100 mg Pravastatin Sodium (Pravachol) 40 mg PO DAILY [facility] Last Admin: 12/14/17 08:30 Dose: 40 mg Senna/Docusate Sodium (Senokot S 50 Mg-8.6 Mg) 2 tab PO HS [facility] Last Admin: 12/13/17 21:21 Dose: 2 tab Simethicone (Mylicon Chew Tab) 80 mg PO TID [facility] Last Admin: 12/14/17 08:29 Dose: 80 mg - Labs Labs: 12/14/17 05:35 12/14/17 05:35 PT 29.9 Seconds (9.8-13.1) H 12/14/17 05:35 INR 2.6 (0.9-1.2) H 12/14/17 05:35 APTT 44.6 Seconds (25.6-37.1) H 12/10/17 23:31 - Constitutional Appears: No Acute Distress - ENT Exam ENT Exam: Mucous Membranes Moist - Neck Exam Neck Exam: absent: Lymphadenopathy - Respiratory Exam Respiratory Exam: NORMAL BREATHING PATTERN. absent: Chest Wall Tenderness - Cardiovascular Exam Cardiovascular Exam: absent: Gallop, Rubs - GI/Abdominal Exam GI & Abdominal Exam: Soft, Normal Bowel Sounds - Extremities Exam Extremities Exam: absent: Calf Tenderness - Back Exam Back Exam: absent: CVA tenderness (L), CVA tenderness (R) - Neurological Exam Neurological Exam: Alert - Skin Skin Exam: absent: Cyanosis Assessment and Plan (1) Diabetes mellitus type 2 in obese Status: Acute (2) Hematuria Status: Acute (3) Staghorn calculus Status: Acute (4) Urinary tract infection Assessment & Plan: Assessment: Stable UTI with left staghorn calculi diabetes Mellitus ( years), hypertension (years) morbid obesity hyperlipidemia, a fib, left kidney stone s/p ESWL and stent placements Urine culture showed Pseudomonas antibiotics as per sensitivity as noted Status: Acute
--- NOTE | 2017-12-14 12:36 | CP.PCM.PN ---
Subjective - Date & Time of Evaluation Date of Evaluation: 12/14/17 Time of Evaluation: 08:00 - Subjective Subjective: afeb alert less pain Objective - Vital Signs/Intake and Output Vital Signs (last 24 hours): Temp Pulse Resp BP Pulse Ox 97.3 F L 80 19 105/71 96 12/14/17 09:00 12/14/17 11:31 12/14/17 08:10 12/14/17 11:31 12/14/17 08:10 - Medications Medications: Current Medications Acetaminophen/Codeine Phosphate (Tylenol/Codeine 300 Mg/30 Mg) 1 tab PO Q6 PRN PRN Reason: Pain, moderate (4-7) Last Admin: 12/14/17 11:30 Dose: 1 tab Al Hydrox/Mg Hydrox/Simethicone (Maalox Plus 30 Ml) 30 ml PO DAILY PRN PRN Reason: Heartburn Last Admin: 12/11/17 12:34 Dose: 30 ml Brimonidine Tartrate (Alphagan 0.2% Opht) 1 drop OU BID [facility] Last Admin: 12/14/17 08:28 Dose: 1 drop Cyclobenzaprine HCl (Flexeril) 10 mg PO HS PRN PRN Reason: Muscle spasm Diltiazem HCl (Cardizem Cd) 360 mg PO DAILY [facility] Last Admin: 12/14/17 08:29 Dose: 360 mg Docusate Sodium (Colace) 100 mg PO BID [facility] Last Admin: 12/14/17 08:29 Dose: 100 mg Dorzolamide HCl (Trusopt) 1 drop OU BID [facility] Last Admin: 12/14/17 08:28 Dose: 1 drop Gabapentin (Neurontin) 300 mg PO TID [facility] Last Admin: 12/14/17 08:30 Dose: 300 mg Hydrocortisone (Anusol-Hc) 30 applic [place] BID [facility] Last Admin: 12/14/17 08:28 Dose: 30 applic Cefepime HCl 1 gm/ Sodium (Chloride) 100 mls @ 100 mls/hr IVPB Q8 [facility]ISANDR[facility] PRN Reason: Protocol Lactic Acid (Lac-Hydrin 12% Cream (140 G)) 1 ea TOP BID [facility] Last Admin: 12/14/17 08:27 Dose: 1 applic Lactulose (Enulose) 20 gm PO TID PRN PRN Reason: Constipation Last Admin: 12/12/17 13:19 Dose: 20 gm Latanoprost (Xalatan Opht) 1 drop OS [facility] Last Admin: 12/13/17 21:21 Dose: 1 drop Lisinopril (Zestril) 10 mg PO DAILY [facility] Last Admin: 12/14/17 11:31 Dose: 10 mg Metformin HCl (Glucophage) 1,000 mg PO DAILY [facility] Last Admin: 12/14/17 08:29 Dose: 1,000 mg Pantoprazole Sodium (Protonix Ec Tab) 40 mg PO DAILY [facility] Last Admin: 12/14/17 08:30 Dose: 40 mg Phenazopyridine HCl (Pyridium) 100 mg PO TID [facility] Last Admin: 12/14/17 08:29 Dose: 100 mg Pravastatin Sodium (Pravachol) 40 mg PO DAILY [facility] Last Admin: 12/14/17 08:30 Dose: 40 mg Senna/Docusate Sodium (Senokot S 50 Mg-8.6 Mg) 2 tab PO [facility] Last Admin: 12/13/17 21:21 Dose: 2 tab Simethicone (Mylicon Chew Tab) 80 mg PO TID [facility] Last Admin: 12/14/17 08:29 Dose: 80 mg - Labs Labs: 12/14/17 05:35 12/14/17 05:35 PT 29.9 Seconds (9.8-13.1) H 12/14/17 05:35 INR 2.6 (0.9-1.2) H 12/14/17 05:35 APTT 44.6 Seconds (25.6-37.1) H 12/10/17 23:31 - Constitutional Appears: Non-toxic, Chronically Ill - Head Exam Head Exam: NORMOCEPHALIC - Eye Exam Eye Exam: PERRL - ENT Exam ENT Exam: Mucous Membranes Dry - Neck Exam Neck Exam: absent: Lymphadenopathy - Respiratory Exam Respiratory Exam: Decreased Breath Sounds - Cardiovascular Exam Cardiovascular Exam: REGULAR RHYTHM - GI/Abdominal Exam GI & Abdominal Exam: Distended - Rectal Exam Rectal Exam: Deferred - Exam Exam: NORMAL INSPECTION - Extremities Exam Extremities Exam: absent: Pedal Edema - Back Exam Back Exam: absent: CVA tenderness (L), CVA tenderness (R) Assessment and Plan (1) Atrial fibrillation Status: Acute (2) Chest pain Status: Acute (3) Diabetes mellitus type 2 in obese Status: Acute (4) Nephrolithiasis Status: Acute (5) Staghorn calculus Status: Acute (6) Urinary tract infection Status: Acute
--- NOTE | 2017-12-14 13:21 | CP.PCM.PN ---
Subjective - Date & Time of Evaluation Date of Evaluation: 12/14/17 Time of Evaluation: 11:30 - Subjective Subjective: Pt seen/examined this am; no acute events overnight. Endorses decreased pain, able to tolerate diet. Objective - Vital Signs/Intake and Output Vital Signs (last 24 hours): Temp Pulse Resp BP Pulse Ox 97.3 F L 80 19 105/71 96 12/14/17 09:00 12/14/17 11:31 12/14/17 08:10 12/14/17 11:31 12/14/17 08:10 - Medications Medications: Current Medications Acetaminophen/Codeine Phosphate (Tylenol/Codeine 300 Mg/30 Mg) 1 tab PO Q6 PRN PRN Reason: Pain, moderate (4-7) Last Admin: 12/14/17 11:30 Dose: 1 tab Al Hydrox/Mg Hydrox/Simethicone (Maalox Plus 30 Ml) 30 ml PO DAILY PRN PRN Reason: Heartburn Last Admin: 12/11/17 12:34 Dose: 30 ml Brimonidine Tartrate (Alphagan 0.2% Opht) 1 drop OU BID [facility] Last Admin: 12/14/17 08:28 Dose: 1 drop Cyclobenzaprine HCl (Flexeril) 10 mg PO HS PRN PRN Reason: Muscle spasm Diltiazem HCl (Cardizem Cd) 360 mg PO DAILY [facility] Last Admin: 12/14/17 08:29 Dose: 360 mg Docusate Sodium (Colace) 100 mg PO BID [facility] Last Admin: 12/14/17 08:29 Dose: 100 mg Dorzolamide HCl (Trusopt) 1 drop OU BID [facility] Last Admin: 12/14/17 08:28 Dose: 1 drop Gabapentin (Neurontin) 300 mg PO TID [facility] Last Admin: 12/14/17 12:45 Dose: 300 mg Hydrocortisone (Anusol-Hc) 30 applic [place] BID [facility] Last Admin: 12/14/17 08:28 Dose: 30 applic Cefepime HCl 1 gm/ Sodium (Chloride) 100 mls @ 100 mls/hr IVPB Q8 [facility]ISANDR[facility] PRN Reason: Protocol Lactic Acid (Lac-Hydrin 12% Cream (140 G)) 1 ea TOP BID [facility] Last Admin: 12/14/17 08:27 Dose: 1 applic Lactulose (Enulose) 20 gm PO TID PRN PRN Reason: Constipation Last Admin: 12/12/17 13:19 Dose: 20 gm Latanoprost (Xalatan Opht) 1 drop OS HS [facility] Last Admin: 12/13/17 21:21 Dose: 1 drop Lisinopril (Zestril) 10 mg PO DAILY [facility] Last Admin: 12/14/17 11:31 Dose: 10 mg Metformin HCl (Glucophage) 1,000 mg PO DAILY [facility] Last Admin: 12/14/17 08:29 Dose: 1,000 mg Pantoprazole Sodium (Protonix Ec Tab) 40 mg PO DAILY [facility] Last Admin: 12/14/17 08:30 Dose: 40 mg Phenazopyridine HCl (Pyridium) 100 mg PO TID [facility] Last Admin: 12/14/17 12:46 Dose: 100 mg Pravastatin Sodium (Pravachol) 40 mg PO DAILY [facility] Last Admin: 12/14/17 08:30 Dose: 40 mg Senna/Docusate Sodium (Senokot S 50 Mg-8.6 Mg) 2 tab PO HS [facility] Last Admin: 12/13/17 21:21 Dose: 2 tab Simethicone (Mylicon Chew Tab) 80 mg PO TID [facility] Last Admin: 12/14/17 12:45 Dose: 80 mg - Labs Labs: 12/14/17 05:35 12/14/17 05:35 PT 29.9 Seconds (9.8-13.1) H 12/14/17 05:35 INR 2.6 (0.9-1.2) H 12/14/17 05:35 APTT 44.6 Seconds (25.6-37.1) H 12/10/17 23:31 - Constitutional Appears: Chronically Ill - Head Exam Head Exam: NORMAL INSPECTION - ENT Exam ENT Exam: Mucous Membranes Moist - Respiratory Exam Respiratory Exam: Clear to Ausculation Bilateral, NORMAL BREATHING PATTERN. absent: Respiratory Distress - Cardiovascular Exam Cardiovascular Exam: REGULAR RHYTHM, +S1, +S2 - GI/Abdominal Exam GI & Abdominal Exam: Soft, Normal Bowel Sounds Additional comments: obese - Extremities Exam Additional comments: evidence of venous stasis skin changes b/l, no ulcers - Neurological Exam Neurological Exam: Alert, Awake Assessment and Plan (1) Nephrolithiasis Status: Acute (2) Staghorn calculus Status: Acute (3) Urinary tract infection Status: Acute (4) Atrial fibrillation Status: Chronic (5) Diabetes mellitus type 2 in obese Status: Chronic - Assessment and Plan (Free Text) Plan: - as per ID - antibiotics changed to cefepime; needs IV 1gm Q8H x 14 days, and may complete in [place]. - cardio consult - echo done, pending read and further recs - urology - [facility] mgmt as outpatient - nephro - tx uti with abx - on coumadin - renal diet - PT/OT
[2017-12-14] MEDS: Cefepime 1 GM in Sodium Chloride 0.9% 100 ML IVPB SCH (16:42)
[2017-12-14] MEDS: Docusate-Senna 50 mg-8.6 mg Tab PO SCH (21:16)
[2017-12-14] MEDS: Latanoprost 0.005% Opht SOUTION OS SCH (21:18)
[2017-12-15] MEDS: Cefepime 1 GM in Sodium Chloride 0.9% 100 ML IVPB SCH ×3 (00:38→16:19)
[2017-12-15 06:53] LABS: HEMOGLOBIN 13.3 g/dL (12.0-16.0); MEAN CELL VOLUME 87.7 fl (81.0-99.0); MEAN CORPUSCULAR HGB CONC 33.1 g/dL (33.0-37.0); RBC 4.6 Mil/uL (3.80-5.20); RED CELL DISTRIBUTION WIDTH 13.5 % (11.5-14.5); WHITE BLOOD COUNT 6.5 K/uL (4.8-10.8)
[2017-12-15 07:01] LABS: INR 2.5 (0.9-1.2); PROTHROMBIN TIME 27.7 Seconds (9.8-13.1)
[2017-12-15 08:01] LABS: ALBUMIN 3.3 g/dL (3.5-5.0); ALT/SGPT 44 U/L (9-52); AST/SGOT 36 U/L (14-36); BLOOD UREA NITROGEN 16 mg/dl (7-17); CALCIUM 9.3 mg/dL (8.4-10.2); GFR AFRICAN-AMERICAN > 60; GFR NON-AFRICAN AMERICAN > 60
[2017-12-15] MEDS: Brimonidine 0.2% 50 DROP/5 ML BOTTLE OU SCH ×2 (08:37→16:20)
[2017-12-15] MEDS: Dorzolamide 2% Ophth Soln OU SCH ×2 (08:38→16:20)
[2017-12-15] MEDS: diltiaZEM 180 mg/24 Hours CD Cap PO SCH (08:39)
[2017-12-15] MEDS: Pantoprazole 40 mg EC Tab PO SCH (08:39)
[2017-12-15] MEDS: Hydrocortisone 2.5% (Rectal) CREAM PR SCH ×2 (08:40→16:20)
[2017-12-15] MEDS: Ammonium Lactate 12% Cream (140 g) TOP SCH ×2 (08:41→16:21)
[2017-12-15] MEDS: Simethicone 80 mg Chewtab PO SCH ×3 (08:41→16:21)
[2017-12-15] MEDS: Pravastatin Sodium 40 MG TAB PO SCH (08:41)
--- NOTE | 2017-12-15 12:37 | CP.PCM.PN ---
Subjective - Date & Time of Evaluation Date of Evaluation: 12/15/17 Time of Evaluation: 09:00 - Subjective Subjective: awake alert nad appears comfortable Objective - Vital Signs/Intake and Output Vital Signs (last 24 hours): Temp Pulse Resp BP Pulse Ox 97.9 F 67 19 122/77 98 12/15/17 08:22 12/15/17 08:39 12/15/17 08:22 12/15/17 08:39 12/15/17 08:22 - Medications Medications: Current Medications Acetaminophen/Codeine Phosphate (Tylenol/Codeine 300 Mg/30 Mg) 1 tab PO Q6 PRN PRN Reason: Pain, moderate (4-7) Last Admin: 12/14/17 11:30 Dose: 1 tab Al Hydrox/Mg Hydrox/Simethicone (Maalox Plus 30 Ml) 30 ml PO DAILY PRN PRN Reason: Heartburn Last Admin: 12/11/17 12:34 Dose: 30 ml Brimonidine Tartrate (Alphagan 0.2% Opht) 1 drop OU BID [facility] Last Admin: 12/15/17 08:37 Dose: 1 drop Cyclobenzaprine HCl (Flexeril) 10 mg PO HS PRN PRN Reason: Muscle spasm Diltiazem HCl (Cardizem Cd) 360 mg PO DAILY [facility] Last Admin: 12/15/17 08:39 Dose: 360 mg Docusate Sodium (Colace) 100 mg PO BID [facility] Last Admin: 12/15/17 08:39 Dose: 100 mg Dorzolamide HCl (Trusopt) 1 drop OU BID [facility] Last Admin: 12/15/17 08:38 Dose: 1 drop Gabapentin (Neurontin) 300 mg PO TID [facility] Last Admin: 12/15/17 12:04 Dose: 300 mg Hydrocortisone (Anusol-Hc) 30 applic [place] BID [facility] Last Admin: 12/15/17 08:40 Dose: 30 applic Cefepime HCl 1 gm/ Sodium (Chloride) 100 mls @ 100 mls/hr IVPB Q8 LISANDR[facility] PRN Reason: Protocol Last Admin: 12/15/17 08:37 Dose: 100 mls/hr Lactic Acid (Lac-Hydrin 12% Cream (140 G)) 1 ea TOP BID [facility] Last Admin: 12/15/17 08:41 Dose: 1 applic Lactulose (Enulose) 20 gm PO TID PRN PRN Reason: Constipation Last Admin: 12/12/17 13:19 Dose: 20 gm Latanoprost (Xalatan Opht) 1 drop OS HS [facility] Last Admin: 12/14/17 21:18 Dose: 1 drop Lisinopril (Zestril) 10 mg PO DAILY [facility] Last Admin: 12/15/17 08:41 Dose: 10 mg Metformin HCl (Glucophage) 1,000 mg PO DAILY [facility] Last Admin: 12/15/17 08:41 Dose: 1,000 mg Pantoprazole Sodium (Protonix Ec Tab) 40 mg PO DAILY [facility] Last Admin: 12/15/17 08:39 Dose: 40 mg Phenazopyridine HCl (Pyridium) 100 mg PO TID [facility] Last Admin: 12/15/17 12:04 Dose: 100 mg Pravastatin Sodium (Pravachol) 40 mg PO DAILY [facility] Last Admin: 12/15/17 08:41 Dose: 40 mg Senna/Docusate Sodium (Senokot S 50 Mg-8.6 Mg) 2 tab PO HS [facility] Last Admin: 12/14/17 21:16 Dose: 2 tab Simethicone (Mylicon Chew Tab) 80 mg PO TID [facility] Last Admin: 12/15/17 12:04 Dose: 80 mg Warfarin Sodium (Coumadin) 4 mg PO QD5 [facility] PRN Reason: Protocol Stop: 12/15/17 17:01 - Labs Labs: 12/15/17 06:05 12/15/17 06:05 PT 27.7 Seconds (9.8-13.1) H 12/15/17 06:05 INR 2.5 (0.9-1.2) H 12/15/17 06:05 APTT 44.6 Seconds (25.6-37.1) H 12/10/17 23:31 - Constitutional Appears: Non-toxic, Chronically Ill - Head Exam Head Exam: NORMOCEPHALIC - Eye Exam Eye Exam: PERRL - ENT Exam ENT Exam: Mucous Membranes Dry - Neck Exam Neck Exam: absent: Lymphadenopathy - Respiratory Exam Respiratory Exam: Decreased Breath Sounds - Cardiovascular Exam Cardiovascular Exam: REGULAR RHYTHM - GI/Abdominal Exam GI & Abdominal Exam: Distended, Soft - Rectal Exam Rectal Exam: Deferred - Exam Exam: NORMAL INSPECTION Assessment and Plan (1) Atrial fibrillation Status: Chronic (2) Chest pain Status: Acute (3) Diabetes mellitus type 2 in obese Status: Chronic (4) Nephrolithiasis Status: Acute (5) Staghorn calculus Status: Acute (6) Urinary tract infection Status: Acute - Assessment and Plan (Free Text) Assessment: cont iv rx for 14 days
--- NOTE | 2017-12-15 13:54 | CARD ---
APPROVED REPORT Date of service: 12/13/2017 EXAM: Two-dimensional and M-mode echocardiogram with Doppler and color Doppler. Other Information Quality : GoodRhythm : NSR INDICATION Hypertension/HCVD Atrial Fibrillation 2D DIMENSIONS IVSd1.42 (0.7-1.1cm)LVDd4.03 (3.9-5.9cm) LVOT Diameter2.42 (1.8-2.4cm)PWd1.03 (0.7-1.1cm) IVSs1.67 (0.8-1.2cm)LVDs2.56 (2.5-4.0cm) FS (%) 36.6 %PWs1.42 (0.8-1.2cm) M-Mode DIMENSIONS Left Atrium (MM)4.18 (2.5-4.0cm)IVSd1.26 (0.7-1.1cm) Aortic Root3.12 (2.2-3.7cm)LVDd4.56 (4.0-5.6cm) Aortic Cusp Exc.1.97 (1.5-2.0cm)PWd1.06 (0.7-1.1cm) IVSs1.71 cmFS (%) 41 % LVDs2.71 (2.0-3.8cm)PWs1.53 cm Aortic Valve AoV Peak Akfseqdi280.1cm/sAoV VTI18.0cmAO Peak GR.4mmHg LVOT Peak Oqxwwubu18.1cm/sLVOT VTI15.08cmAO Mean GR.3mmHg KINZA (VMAX)1.71zr2KCZ (VTI)1.57cm2 Mitral Valve MV E Nqafyxyz73.5cm/sMV DECEL [id number] A Iorharzs50.1cm/s MV GNK74ceK/A ratio5.3MVA (PHT)3.33cm2 TDI Lateral E' Peak V11.33cm/sMedial E' Peak V11.16cm/sE/Lateral E'8.4 E/Medial E'8.6 Pulmonary Valve PV Peak Mnsthvuk38.7cm/s Tricuspid Valve TR Peak Pfldbfwa304ft/sRAP FLLCXYWA67zuFsHZ Peak Gr.23mmHg [id number] LEFT VENTRICLE The left ventricle is normal size. Left ventricle systolic function is normal. The Ejection Fraction is 65-70%. There is normal LV segmental wall motion. Tissue Doppler imaging reveals abnormal left ventricular diastolic dysfunction. RIGHT VENTRICLE The right ventricle is normal size. The right ventricular systolic function is normal. ATRIA The left atrium is mildly dilated. The right atrium size is normal. AORTIC VALVE The aortic valve is normal in structure. No aortic regurgitation is present. There is no aortic valvular stenosis. MITRAL VALVE The mitral valve is normal in structure. There is no mitral valve stenosis. Mitral regurgitation is mild. TRICUSPID VALVE The tricuspid valve is normal in structure. There is mild tricuspid regurgitation. PULMONIC VALVE Not well visulized Not well visulized GREAT VESSELS The aortic root is normal in size. The IVC is normal in size and collapses >50% with inspiration. PERICARDIAL EFFUSION The pericardium appears normal. <Conclusion> The left ventricle is normal size. Left ventricle systolic function is normal. The Ejection Fraction is 65-70%. The right ventricular systolic function is normal. The left atrium is mildly dilated. The aortic valve is normal in structure. Mitral regurgitation is mild. There is mild tricuspid regurgitation. The aortic root is normal in size.
--- NOTE | 2017-12-15 14:15 | CP.PCM.PN ---
Subjective - Date & Time of Evaluation Date of Evaluation: 12/15/17 Time of Evaluation: 14:14 - Subjective Subjective: Patient appeared to be comfortable no nausea no vomiting Objective - Vital Signs/Intake and Output Vital Signs (last 24 hours): Temp Pulse Resp BP Pulse Ox 97.9 F 67 19 122/77 98 12/15/17 08:22 12/15/17 08:39 12/15/17 08:22 12/15/17 08:39 12/15/17 08:22 - Medications Medications: Current Medications Acetaminophen/Codeine Phosphate (Tylenol/Codeine 300 Mg/30 Mg) 1 tab PO Q6 PRN PRN Reason: Pain, moderate (4-7) Last Admin: 12/14/17 11:30 Dose: 1 tab Al Hydrox/Mg Hydrox/Simethicone (Maalox Plus 30 Ml) 30 ml PO DAILY PRN PRN Reason: Heartburn Last Admin: 12/11/17 12:34 Dose: 30 ml Brimonidine Tartrate (Alphagan 0.2% Opht) 1 drop OU BID [facility] Last Admin: 12/15/17 08:37 Dose: 1 drop Cyclobenzaprine HCl (Flexeril) 10 mg PO HS PRN PRN Reason: Muscle spasm Diltiazem HCl (Cardizem Cd) 360 mg PO DAILY [facility] Last Admin: 12/15/17 08:39 Dose: 360 mg Docusate Sodium (Colace) 100 mg PO BID [facility] Last Admin: 12/15/17 08:39 Dose: 100 mg Dorzolamide HCl (Trusopt) 1 drop OU BID [facility] Last Admin: 12/15/17 08:38 Dose: 1 drop Gabapentin (Neurontin) 300 mg PO TID [facility] Last Admin: 12/15/17 12:04 Dose: 300 mg Hydrocortisone (Anusol-Hc) 30 applic [place] BID [facility] Last Admin: 12/15/17 08:40 Dose: 30 applic Cefepime HCl 1 gm/ Sodium (Chloride) 100 mls @ 100 mls/hr IVPB Q8 [facility] PRN Reason: Protocol Last Admin: 12/15/17 08:37 Dose: 100 mls/hr Lactic Acid (Lac-Hydrin 12% Cream (140 G)) 1 ea TOP BID [facility] Last Admin: 12/15/17 08:41 Dose: 1 applic Lactulose (Enulose) 20 gm PO TID PRN PRN Reason: Constipation Last Admin: 12/12/17 13:19 Dose: 20 gm Latanoprost (Xalatan Opht) 1 drop OS HS [facility] Last Admin: 12/14/17 21:18 Dose: 1 drop Lisinopril (Zestril) 10 mg PO DAILY [facility] Last Admin: 12/15/17 08:41 Dose: 10 mg Metformin HCl (Glucophage) 1,000 mg PO DAILY [facility] Last Admin: 12/15/17 08:41 Dose: 1,000 mg Pantoprazole Sodium (Protonix Ec Tab) 40 mg PO DAILY [facility] Last Admin: 12/15/17 08:39 Dose: 40 mg Phenazopyridine HCl (Pyridium) 100 mg PO TID [facility] Last Admin: 12/15/17 12:04 Dose: 100 mg Pravastatin Sodium (Pravachol) 40 mg PO DAILY [facility] Last Admin: 12/15/17 08:41 Dose: 40 mg Senna/Docusate Sodium (Senokot S 50 Mg-8.6 Mg) 2 tab PO HS [facility] Last Admin: 12/14/17 21:16 Dose: 2 tab Simethicone (Mylicon Chew Tab) 80 mg PO TID [facility] Last Admin: 12/15/17 12:04 Dose: 80 mg Warfarin Sodium (Coumadin) 4 mg PO QD5 [facility] PRN Reason: Protocol Stop: 12/15/17 17:01 - Labs Labs: 12/15/17 06:05 12/15/17 06:05 PT 27.7 Seconds (9.8-13.1) H 12/15/17 06:05 INR 2.5 (0.9-1.2) H 12/15/17 06:05 APTT 44.6 Seconds (25.6-37.1) H 12/10/17 23:31 - Constitutional Appears: No Acute Distress - Eye Exam Eye Exam: Conjunctival injection - ENT Exam ENT Exam: Mucous Membranes Moist - Neck Exam Neck Exam: absent: Lymphadenopathy - Cardiovascular Exam Cardiovascular Exam: absent: Gallop, JVD, Rubs - GI/Abdominal Exam GI & Abdominal Exam: Soft, Normal Bowel Sounds - Extremities Exam Extremities Exam: absent: Calf Tenderness - Back Exam Back Exam: absent: CVA tenderness (L), CVA tenderness (R) - Neurological Exam Neurological Exam: Alert - Psychiatric Exam Psychiatric exam: Normal Affect - Skin Skin Exam: absent: Cyanosis Assessment and Plan (1) Diabetes mellitus type 2 in obese Status: Chronic (2) Hematuria Status: Acute (3) Staghorn calculus Status: Acute (4) Urinary tract infection Assessment & Plan: Assessment: Stable UTI with left staghorn calculi diabetes Mellitus ( years), hypertension (years) morbid obesity hyperlipidemia, a fib, left kidney stone s/p ESWL and stent placements Urine culture showed Pseudomonas antibiotics as per sensitivity as noted Status: Acute
--- NOTE | 2017-12-15 14:42 | CP.PCM.DIS ---
Provider - Provider Date of Admission: 12/11/17 01:30 Attending physician: Shiva Alvarez MD Consults: Nephro- Dr. Shmuel RUTH- Dr. Vroa Urology - Dr. Issa Cardiology - Dr. Leblanc Time Spent in preparation of Discharge (in minutes): 30 Diagnosis - Discharge Diagnosis (1) Nephrolithiasis Status: Acute (2) Staghorn calculus Status: Acute (3) Urinary tract infection Status: Acute (4) Atrial fibrillation Status: Chronic (5) Diabetes mellitus type 2 in obese Status: Chronic Hospital Course - Lab Results Lab Results: Micro Results 12/10/17 23:31 Blood-Venous Blood Culture - Preliminary NO GROWTH AFTER 4 DAYS 12/10/17 23:31 Blood-Venous Blood Culture - Preliminary NO GROWTH AFTER 4 DAYS 12/13/17 16:00 Throat Group A Strep Throat Culture - Final NO BETA STREP GROUP A ISOLATED. 12/11/17 00:29 Urine,Clean Catch Urine Culture - Final Pseudomonas Aeruginosa Most Recent Lab Values WBC 6.5 K/uL (4.8-10.8) 12/15/17 06:05 RBC 4.60 Mil/uL (3.80-5.20) 12/15/17 06:05 Hgb 13.3 g/dL (12.0-16.0) 12/15/17 06:05 Hct 40.3 % (34.0-47.0) 12/15/17 06:05 MCV 87.7 fl (81.0-99.0) 12/15/17 06:05 MCH 29.0 pg (27.0-31.0) 12/15/17 06:05 MCHC 33.1 g/dL (33.0-37.0) 12/15/17 06:05 RDW 13.5 % (11.5-14.5) 12/15/17 06:05 Plt Count 227 K/uL (130-400) 12/15/17 06:05 MPV 8.8 fl (7.2-11.7) 12/11/17 12:51 Neut % (Auto) 40.5 % (50.0-75.0) L 12/11/17 12:51 Lymph % (Auto) 44.5 % (20.0-40.0) H 12/11/17 12:51 [place] % (Auto) 13.8 % (0.0-10.0) H 12/11/17 12:51 Eos % (Auto) 0.9 % (0.0-4.0) 12/11/17 12:51 Baso % (Auto) 0.3 % (0.0-2.0) 12/11/17 12:51 Neut # (Auto) 3.2 K/uL (1.8-7.0) 12/11/17 12:51 Lymph # (Auto) 3.6 K/uL (1.0-4.3) 12/11/17 12:51 [place] # (Auto) 1.1 K/uL (0.0-0.8) H 12/11/17 12:51 Eos # (Auto) 0.1 K/uL (0.0-0.7) 12/11/17 12:51 Baso # (Auto) 0.0 K/uL (0.0-0.2) 12/11/17 12:51 PT 27.7 Seconds (9.8-13.1) H 12/15/17 06:05 INR 2.5 (0.9-1.2) H 12/15/17 06:05 APTT 44.6 Seconds (25.6-37.1) H 12/10/17 23:31 Sodium 138 mmol/l (132-148) 12/15/17 06:05 Potassium 4.4 MMOL/L (3.6-5.0) 12/15/17 06:05 Chloride 104 mmol/L (98-107) 12/15/17 06:05 Carbon Dioxide 25 mmol/L (22-30) 12/15/17 06:05 Anion Gap 13 (10-20) 12/15/17 06:05 BUN 16 mg/dl (7-17) 12/15/17 06:05 Creatinine 0.7 mg/dl (0.7-1.2) 12/15/17 06:05 Est GFR ( Amer) > 60 12/15/17 06:05 Est GFR (Non-Af Amer) > 60 12/15/17 06:05 POC Glucose (mg/dL) 169 mg/dL (65-110) H 12/15/17 11:01 Random Glucose 120 mg/dL (65-105) H 12/15/17 06:05 Hemoglobin A1c 7.3 % (4.2-6.5) H 12/14/17 05:35 Calcium 9.3 mg/dL (8.4-10.2) 12/15/17 06:05 Total Bilirubin 0.5 mg/dl (0.2-1.3) 12/15/17 06:05 AST 36 U/L (14-36) D 12/15/17 06:05 ALT 44 U/L (9-52) 12/15/17 06:05 Alkaline Phosphatase 68 U/L (38-126) 12/15/17 06:05 Troponin I < 0.0120 ng/mL (0.00-0.120) 12/12/17 00:24 NT-Pro-B Natriuret Pep 304 pg/ml (0-900) 12/11/17 12:51 Total Protein 6.5 G/DL (6.3-8.2) 12/15/17 06:05 Albumin 3.3 g/dL (3.5-5.0) L 12/15/17 06:05 Globulin 3.2 gm/dL (2.2-3.9) 12/15/17 06:05 Albumin/Globulin Ratio 1.0 (1.0-2.1) 12/15/17 06:05 Urine Color Hyacinth (YELLOW) 12/11/17 00:29 Urine Clarity Turbid (Clear) 12/11/17 00:29 Urine pH 6.0 (5.0-8.0) 12/11/17 00:29 Ur Specific [place] 1.022 (1.003-1.030) 12/11/17 00:29 Urine Protein >=500 mg/dL (NEGATIVE) 12/11/17 00:29 Urine Glucose (UA) Neg mg/dL (Normal) 12/11/17 00:29 Urine Ketones Negative mg/dL (NEGATIVE) 12/11/17 00:29 Urine Blood Large (NEGATIVE) 12/11/17 00: Urine Nitrate Negative (NEGATIVE) 12/11/17 00:29 Urine Bilirubin Negative (NEGATIVE) 12/11/17 00:29 Urine Urobilinogen 0.2-1.0 mg/dL (0.2-1.0) 12/11/17 00:29 Ur Leukocyte Esterase Large Miah/uL (Negative) 12/11/17 00:29 Urine RBC (Auto) 2265 /hpf (0-3) H 12/11/17 00:29 Urine Microscopic WBC 2218 /hpf (0-5) H 12/11/17 00:29 Ur Squamous Epith Cells 14 /hpf (0-5) H 12/11/17 00:29 Grp A Beta Strep Ag Negative (NEGATIVE) 12/13/17 16:00 - Hospital Course Hospital Course: 62 yo F with PMH Afib, nephrolithiasis, DM2 admitted due to flank pain and hematuria; CT showed left renal staghorn calculus. Evaluated by nephrology, urology and ID, as well as cardiology (as pt c/o of chest pain during admission) . Urine culture positive for pseudomonas; as per ID, pt will require 14 days IV cefepime. Neprology and urology recs- stone will be addressed on outpt basis. Echo done after ACS was r/o with neg troponins, to asses for wall motion abnormalities. Pt stable for discharge to subacute rehab to complete IV antibiotics and physical therapy. Seen today, used [employer] [place] [phone] - pt aware of plan and verbalizes that she has hopes KELLY will make her feel stronger. Discharge Exam - Head Exam Head Exam: NORMOCEPHALIC - Eye Exam Eye Exam: Normal appearance - Respiratory Exam Respiratory Exam: Clear to PA & Lateral. absent: Respiratory Distress - Cardiovascular Exam Cardiovascular Exam: Irregular Rhythm (known a-fib) - GI/Abdominal Exam GI & Abdominal Exam: Normal Bowel Sounds (all 4 quadrants), Soft. absent: Distended, Guarding, Rebound - Extremities Exam Additional comments: evidence of venous stasis edema - Neurological Exam Neurological exam: Alert - Skin Skin Exam: Dry, Warm Discharge Plan - Discharge Medications Prescriptions: Cefepime [Maxipime] 1 gm IV Q8 #28 vial - Follow Up Plan Condition: STABLE Disposition: REHAB FACILITY/REHAB UNIT Instructions: Dysuria, Adult (DC), Blood in the Urine (Hematuria), Adult (DC), Urinary Tract Infection in Women (DC) Additional Instructions: follow up with primary MD 1 week Referrals: Rony Issa MD [Staff Provider] - Lexx Mi MD [Staff Provider] - David Vora MD [Staff Provider] -
[2017-12-15 16:23] VITALS: BP 117/74; PULSE 74; RESP 20; TEMP 97.4; O2SAT 97
--- NOTE | 2017-12-16 14:29 | PQF ---
PROVIDER RESPONSE TEXT: Morbid obesity, bmi 47.4 REVIEWER QUERY TEXT: Nutritional Deficiency Clarification In agreement with the BMI:47.4 as entered into the EMR? OR: Disagree OR: Other explanation of clinical finding EMR: 5ft 8 in 12/11 Renal consult: dxs. include: Assessment: UTI with left staghorn calculi diabetes Mellitus ( ye ars), hypertension (years) morbid obesity hyperlipidemia, a fib, left kidney stone s/p ESWL and stent placements The patient's Clinical Indicators include: xxxxx Query created by: Roxie Ashraf on 12/14/2017 9:46 AM Electronically signed by: Shiva Alvarez MD 12/16/2017 2:26 PM
== END 2017-12-15 19:25 | DRG 320 ==
LOC: H.ER 19:47 → H.ERHOLD 12-11 01:30 → H.MEDSURG1 12-11 08:55
PROVIDERS: ADMIT Family Medicine; ATTEND Family Medicine
DX: N13.6 Pyonephrosis (principal); B96.5 Pseudomonas (aeruginosa) (mallei) (pseudomallei) as the cause of diseases classified elsewhere; E11.69 Type 2 diabetes mellitus with other specified complication; I48.2 Chronic atrial fibrillation; R31.9 Hematuria, unspecified; E66.01 Morbid (severe) obesity due to excess calories; Z68.42 Body mass index [BMI] 45.0-49.9, adult; K59.00 Constipation, unspecified; I10 Essential (primary) hypertension; E78.5 Hyperlipidemia, unspecified; Z79.01 Long term (current) use of anticoagulants; Z79.84 Long term (current) use of oral hypoglycemic drugs; Z87.442 Personal history of urinary calculi